=== PATIENT | female | born 1980 | race Caucasian/White ===

== ENCOUNTER → 2016-10-08 | Outpatient (CLI) | payer OTHER | END | disposition home or self-care (01) | LOC: LABWHC1 15:19 | PROVIDERS: ATTEND Obstetrics & Gynecology | DX: N92.6 Irregular menstruation, unspecified (principal) | CPT/HCPCS: 36415; 84702 ==

== ENCOUNTER 2017-05-30 15:55 | Emergency (ER) | payer OTHER ==
[2017-05-30] MEDS ORDERED: IBUPROFEN 600 MG TAB PO STA (16:16)
[2017-05-30] MEDS ORDERED: ACETAMINOPHEN TAB 325 MG TAB PO STA (16:16)
[2017-05-30] MEDS ORDERED: OSELTAMIVIR 75 MG CAP PO STA (16:21)
--- NOTE | 2017-05-30 17:29 | XR ---
EXAMINATION TYPE: XR chest 2V DATE OF EXAM: 05/30/2017 COMPARISON: NONE INDICATION: Cough and congestion TECHNIQUE: Frontal and lateral views of the chest are obtained. FINDINGS: The heart size is normal. The pulmonary vasculature is normal. The lungs are clear. IMPRESSION: 1. No acute pulmonary process.
[2017-05-30 17:34] VITALS: BP 133/82; PULSE 91; RESP 18; TEMP 98.8
--- NOTE | 2017-05-30 17:34 | ED ---
Fever HPI - General Chief Complaint: Fever Stated Complaint: congestion/fever Time Seen by Provider: 05/30/17 16:03 Source: patient Mode of arrival: ambulatory Limitations: no limitations - History of Present Illness Initial Comments: 36-year-old female patient presents today for evaluation of upper respiratory symptoms and fever. Patient states that last Wednesday she started with nasal congestion, sore throat, and cough. She states that she did see her primary care physician on Wednesday was diagnosed with a sinus infection and given azithromycin. Patient states that she completed her last dose of azithromycin yesterday. She states that last evening she started having fevers. She states that she is coughing up green sputum. She states she has general body aches, nausea, and feels generally unwell. She denies any rash. She denies any hemoptysis. She denies any use of tobacco products. was diagnosed with influenza last week. She has a child sick with similar symptoms. Patient denies any recent shortness breath, chest pain, abdominal pain, vomiting, diarrhea, constipation, back pain, numbness, tingling, dizziness, hematuria, dysuria, urinary urgency, urinary frequency, headache, visual changes, or any other complaints. She denies any chance of . - Related Data Home Medications Medication Instructions Recorded Confirmed Citalopram Hydrobromide [CeleXA] 20 mg PO DAILY 08/21/13 12/27/13 Previous Rx's Medication Instructions Recorded Loratadine [Claritin] 10 mg PO DAILY #30 tab 08/21/13 Cyclobenzaprine [Flexeril] 10 mg PO TID #20 tablet 12/27/13 Hydrocodone/Acetaminophen [[place] 1 each PO Q4HR PRN #20 tablet 12/27/13 10-325 Tablet] Ibuprofen [Motrin] 600 mg PO Q8HR PRN #30 tab 12/27/13 Oseltamivir [Tamiflu] 75 mg PO Q12HR #10 cap 05/30/17 Allergies Allergy/AdvReac Type Severity Reaction Status Date / Time No Known Allergies Allergy Verified 05/30/17 16:02 Review of Systems ROS Statement: Those systems with pertinent positive or pertinent negative responses have been documented in the HPI. ROS Other: All systems not noted in ROS Statement are negative. Past Medical History Additional Past Medical History / Comment(s): Depression History of Any Multi-Drug Resistant Organisms: None Reported Past Surgical History: Section Past Psychological History: No Psychological Hx Reported Smoking Status: Current every day smoker Past Alcohol Use History: None Reported Past Drug Use History: None Reported General Exam Limitations: no limitations General appearance: alert, in no apparent distress, other (This is a well- developed, obese Keira patient in no acute distress. Vital signs upon presentation are temperature 103.0F, pulse 106, respirations 20, blood pressure 141/82, pulse ox 99% on room air.) Eye exam: Present: normal appearance, PERRL, EOMI. Absent: scleral icterus, conjunctival injection, periorbital swelling ENT exam: Present: normal exam, mucous membranes moist, TM's normal bilaterally. Absent: normal oropharynx (Pharyngeal erythema, tonsillar hypertrophy.) Neck exam: Present: normal inspection. Absent: tenderness, meningismus, lymphadenopathy Respiratory exam: Present: normal lung sounds bilaterally. Absent: respiratory distress, wheezes, rales, rhonchi, stridor Cardiovascular Exam: Present: normal rhythm, tachycardia, normal heart sounds. Absent: systolic murmur, diastolic murmur, rubs, gallop, clicks GI/Abdominal exam: Present: soft, normal bowel sounds. Absent: distended, tenderness, guarding, rebound, rigid Neurological exam: Present: alert, oriented X3, CN II-XII intact Psychiatric exam: Present: normal affect, normal mood Skin exam: Present: warm, dry, intact, normal color. Absent: rash Course Vital Signs 05/30/17 05/30/17 16:01 17:33 Temperature 103.0 F H 98.8 F Pulse Rate 106 H 91 Respiratory 20 18 Rate Blood Pressure 141/82 133/82 O2 Sat by Pulse 99 96 Oximetry Medical Decision Making - Medical Decision Making 36-year-old female patient percents to to the emergency department today for complaints of upper respiratory symptoms and fever. Physical examination shows tonsillar hypertrophy and erythema. Patient has no cervical lymphadenopathy. Lungs are clear to auscultation with good air movement. Chest x-ray was negative for any acute cardiopulmonary process. Patient has an was diagnosed with influenza last week. Patient symptoms are consistent with an influenza infection. We will go ahead and treat with Tamiflu as her fever did just start yesterday. She is educated regarding fever control. She is instructed to increase her fluid intake. She is instructed to follow-up with her primary care physician for recheck in 1-2 days. She is educated regarding return parameters. She verbalizes understanding and agrees with this plan. Disposition Clinical Impression: Influenza Disposition: HOME SELF-CARE Condition: Good Instructions: Fever in Adults (ED), Influenza (ED) Additional Instructions: Take ibuprofen and acetaminophen every 6 hours to treat her fever. Increase fluids, if you cannot tolerate water drink Gatorade or other sports drinks. Follow-up with her primary care physician for recheck in 1-2 days. Return here immediately for any new, worsening, or concerning symptoms. Prescriptions: Oseltamivir [Tamiflu] 75 mg PO Q12HR #10 cap Referrals: Harika Sullivan MD [Primary Care Provider] - 1-2 days Time of Disposition: 17:34
== END 2017-05-30 17:39 | disposition home or self-care (01) ==
LOC: EC 15:55
DX: J11.1 Influenza due to unidentified influenza virus with other respiratory manifestations (principal); R00.0 Tachycardia, unspecified; F32.9 Major depressive disorder, single episode, unspecified; E66.9 Obesity, unspecified; F17.200 Nicotine dependence, unspecified, uncomplicated; Z79.899 Other long term (current) drug therapy; Z68.42 Body mass index [BMI] 45.0-49.9, adult; Z20.828 Contact with and (suspected) exposure to other viral communicable diseases
CPT/HCPCS: 71046; 99283

== ENCOUNTER 2018-04-30 08:53 | Emergency (ER) | payer OTHER ==
[2018-04-30 09:01] VITALS: BP 142/97; PULSE 83; RESP 18; TEMP 97.9
--- NOTE | 2018-04-30 09:26 | ED ---
General Adult HPI - General Chief complaint: ENT Stated complaint: ENT Time Seen by Provider: 04/30/18 09:07 Source: patient, RN notes reviewed Mode of arrival: ambulatory Limitations: no limitations - History of Present Illness Initial comments: Patient's 37-year-old female presenting to the emergency room today with a chief complaint of right-sided ear pain. She does admit that she had some rhinorrhea and congestion over the past week. Does admit that she's been using [id number] medications that were recommended by her VIRTUAL ASSISTANT. She states that she's been having increased pain to the right ear. Also pain right side of her throat. Patient denies any other complaints or symptoms. She does admit to being approximately 7 Weeks . Denies any abdominal pain, vaginal bleeding or discharge. Patient denies any recent fever, chills, shortness of breath, chest pain, back pain, abdominal pain, nausea or vomiting, headaches or visual changes, or any other complaints. - Related Data Home Medications Medication Instructions Recorded Confirmed Citalopram Hydrobromide [CeleXA] 20 mg PO DAILY 08/21/13 12/27/13 Previous Rx's Medication Instructions Recorded Loratadine [Claritin] 10 mg PO DAILY #30 tab 08/21/13 Cyclobenzaprine [Flexeril] 10 mg PO TID #20 tablet 12/27/13 Hydrocodone/Acetaminophen [[place] 1 each PO Q4HR PRN #20 tablet 12/27/13 10-325 Tablet] Ibuprofen [Motrin] 600 mg PO Q8HR PRN #30 tab 12/27/13 Oseltamivir [Tamiflu] 75 mg PO Q12HR #10 cap 05/30/17 Amoxicillin 500 mg PO Q8H 10 Days day 04/30/18 Allergies Allergy/AdvReac Type Severity Reaction Status Date / Time No Known Allergies Allergy Verified 04/30/18 09:01 Review of Systems ROS Statement: Those systems with pertinent positive or pertinent negative responses have been documented in the HPI. ROS Other: All systems not noted in ROS Statement are negative. Past Medical History Additional Past Medical History / Comment(s): Depression History of Any Multi-Drug Resistant Organisms: None Reported Past Surgical History: Section Past Psychological History: Depression Smoking Status: Current every day smoker Past Alcohol Use History: None Reported Past Drug Use History: None Reported General Exam - General Exam Comments Initial Comments: General: The patient is awake and alert, in no distress, and does not appear acutely ill. Eye: There is normal conjunctiva bilaterally. No signs of icterus. Ears, nose, mouth and throat: There are moist mucous membranes and no oral lesions. Increased redness erythema to the right ear with tenderness over the pinna and trigus on palpation. Neck: The neck is supple, there is no tenderness or JVD. Cardiovascular: There is a regular rate and rhythm. No murmur, rub or gallop is appreciated. Respiratory: Lungs are clear to auscultation, respirations are non-labored, breath sounds are equal. No wheezes, stridor, rales, or rhonchi. Musculoskeletal: Normal ROM, no tenderness. Neurological: A&O x 3. CN II-XII intact, There are no obvious motor or sensory deficits. Coordination appears grossly intact. Speech is normal. Skin: Skin is warm and dry and no rashes or lesions are noted. Psychiatric: Cooperative, appropriate mood & affect, normal judgment. Limitations: no limitations Course Vital Signs 04/30/18 08:58 Temperature 97.9 F Pulse Rate 83 Respiratory 18 Rate Blood Pressure 142/97 O2 Sat by Pulse 98 Oximetry Medical Decision Making - Medical Decision Making Patient will be covered with antibiotics of amoxicillin. She is advised on family following up with over the next 2 days. Disposition Clinical Impression: AOM (acute otitis media) Disposition: HOME SELF-CARE Condition: Good Instructions: Earache (ED) Additional Instructions: Please use medication as discussed. Please follow-up with family doctor in the next 2 days of symptoms have not improved. Please return to emergency room if the symptoms increase or worsen or for any other concerns. Prescriptions: Amoxicillin 500 mg PO Q8H 10 Days day Is patient prescribed a controlled substance at d/c from ED?: No Referrals: Harika Sullivan MD [Primary Care Provider] - 1-2 days Time of Disposition: 09:26
== END 2018-04-30 09:45 | disposition home or self-care (01) ==
LOC: EC 08:53
DX: O99.89 Other specified diseases and conditions complicating pregnancy, childbirth and the puerperium (principal); H66.91 Otitis media, unspecified, right ear; O99.341 Other mental disorders complicating pregnancy, first trimester; F32.9 Major depressive disorder, single episode, unspecified; O99.331 Smoking (tobacco) complicating pregnancy, first trimester; F17.200 Nicotine dependence, unspecified, uncomplicated; Z79.899 Other long term (current) drug therapy; Z3A.01 Less than 8 weeks gestation of pregnancy
CPT/HCPCS: 99282

== ENCOUNTER → 2018-05-04 | Outpatient (CLI) | payer OTHER ==
--- NOTE | 2018-05-04 14:36 | US ---
EXAMINATION TYPE: Transabdominal and Transvaginal DATE OF EXAM: 05/04/18 COMPARISON: NONE CLINICAL HISTORY: Z36 confirm dates. EXAM PERFORMED: Transvaginal (TV) and Transabdominal (TA) EXAM MEASUREMENTS: GESTATIONAL AGE / DATING Physician Established: Not yet established Dates by LMP: (11 weeks/3 days) EDC: 11/20/2018 Dates by First Scan: No previous as this is first scan Dates by Current Scan for: (6 weeks/4 days) EDC: 12/24/2018 MATERNAL ANATOMY Uterus: 13.1 x 7.5 x 5.9cm Right Ovary:2.2 x 2.9 x 2.4cm by TV US Left Ovary: 3.9 x 2.8 x 2.1cm by TV US Post CDS / Adnexa: wnl Presence of free fluid: no Presence of corpus luteal cyst: in let ovary = 2.3 x 1.7 x 1.2cm Presence of subchorionic bleed: no GESTATION / SURVEY CRL: no pole is seen MSD: 2.0cm (6 weeks/4 days) Yolk Sac (normal less than 6mm): not seen IUP: only elongated gestational sac is seen at this US Date of LMP: 02/13/2018 Beta HcG (if available): NA Single, elongated gestational sac is seen measuring 6 weeks/4 days. EDC: 2018 IMPRESSION: Single intrauterine gestational sac. pole is not identified. No cardiac activity is evident. The mean sac diameter of 2.0 cm would be compatible with a 6 weeks 4 day gestation. Typically at this age cardiac activity and pole would be identified.. MTDD
== END | disposition home or self-care (01) ==
LOC: RADUSWWP 12:13
PROVIDERS: ATTEND Obstetrics & Gynecology
DX: Z36.89 Encounter for other specified antenatal screening (principal); Z3A.01 Less than 8 weeks gestation of pregnancy
CPT/HCPCS: 76801; 76817

== ENCOUNTER → 2018-05-12 | Outpatient (CLI) | payer OTHER | END | disposition home or self-care (01) | LOC: LABWHC1 11:08 | PROVIDERS: ATTEND Obstetrics & Gynecology | DX: O02.1 Missed abortion (principal); R53.83 Other fatigue | CPT/HCPCS: 36415; 84702 ==

== ENCOUNTER 2018-05-15 13:16 | Observation (INO) | payer OTHER ==
[2018-05-15] MEDS ORDERED: SODIUM CHLORIDE 0.9% 1,000 ML IV ONE ×3 (14:02→17:01)
[2018-05-15] MEDS ORDERED: MORPHINE SULFATE 2 MG/ML SYRINGE IVP STA (14:05)
[2018-05-15] MEDS ORDERED: ONDANSETRON 4 MG/2 ML VIAL IVP STA (14:05)
--- NOTE | 2018-05-15 14:05 | ED ---
General Adult HPI - General Chief complaint: Vaginal Bleeding Stated complaint: female Time Seen by Provider: 05/15/18 13:53 Source: patient, family, RN notes reviewed Mode of arrival: EMS Limitations: no limitations - History of Present Illness Initial comments: Patient is a pleasant 37-year-old female presenting to the emergency department for vaginal bleeding. Last menstrual period was February 13. Patient does see Dr. Aparicio. Patient is . 1 history of miscarriage. Patient states she has had spotting and was here on . Patient was told that her hormone levels were low and ultrasound did not show anything. Patient was told she would miscarry. Patient started having heavy bleeding around noon today. Patient states she is having large clots. Patient states she is having cramping similar to delivery and feels like she is about to pass out. - Related Data Home Medications Medication Instructions Recorded Confirmed Pnv No.95/Ferrous Fum/Folic AC 1 tab PO DAILY 05/15/18 05/15/18 [ Multivitamin Tablet] Previous Rx's Medication Instructions Recorded Loratadine [Claritin] 10 mg PO DAILY #30 tab 08/21/13 Allergies Allergy/AdvReac Type Severity Reaction Status Date / Time No Known Allergies Allergy Verified 05/15/18 13:45 Review of Systems ROS Statement: Those systems with pertinent positive or pertinent negative responses have been documented in the HPI. ROS Other: All systems not noted in ROS Statement are negative. Constitutional: Denies: fever Eyes: Denies: eye pain ENT: Denies: ear pain Respiratory: Denies: cough Cardiovascular: Denies: chest pain Endocrine: Denies: fatigue Gastrointestinal: Reports: as per HPI Genitourinary: Reports: as per HPI Musculoskeletal: Denies: back pain Skin: Denies: rash Neurological: Denies: headache Past Medical History Additional Past Medical History / Comment(s): Depression History of Any Multi-Drug Resistant Organisms: None Reported Past Surgical History: Section Past Psychological History: Depression Smoking Status: Current every day smoker Past Alcohol Use History: Occasional Past Drug Use History: None Reported General Exam Limitations: no limitations General appearance: alert, anxious Head exam: Present: atraumatic Eye exam: Present: normal appearance, PERRL ENT exam: Present: normal oropharynx Neck exam: Present: normal inspection Respiratory exam: Present: normal lung sounds bilaterally Cardiovascular Exam: Present: regular rate, normal rhythm Expanded Peripheral pulses: 2+: Radial (R), Radial (L), Dorsalis Pedis (R), Dorsalis Pedis (L) GI/Abdominal exam: Present: soft, tenderness (Mild to moderate tenderness lower abdomen). Absent: distended, guarding, rebound, rigid External exam: Present: normal external exam (RN Nic is present.) Speculum exam: Present: vaginal bleeding (Mostly clots.) By manual exam: Present: other (Mild diffuse tenderness) Extremities exam: Present: normal inspection Neurological exam: Present: alert Psychiatric exam: Present: anxious Skin exam: Present: diaphoretic Course Vital Signs 05/15/18 05/15/18 05/15/18 13:30 14:15 14:30 Temperature 97.8 F Pulse Rate 87 80 70 Respiratory 18 18 16 Rate Blood Pressure 135/86 142/94 114/69 O2 Sat by Pulse 95 97 Oximetry 05/15/18 05/15/18 05/15/18 14:45 15:00 15:15 Temperature Pulse Rate 71 76 67 Respiratory 18 18 18 Rate Blood Pressure 111/91 110/69 122/78 O2 Sat by Pulse 99 100 99 Oximetry 05/15/18 15:30 Temperature Pulse Rate 65 Respiratory 18 Rate Blood Pressure 108/67 O2 Sat by Pulse 100 Oximetry - Reevaluation(s) Reevaluation #1: 05/15/18 15:[address] Jeter who will come to evaluate patient. Medical Decision Making - Medical Decision Making Patient seen by Dr. Jeter in the emergency department who will take patient for D&C. - Lab Data Result diagrams: 05/15/18 14:00 05/15/18 14:00 Lab Results 05/15/18 05/15/18 05/15/18 Range/Units 14:00 14:00 14:00 WBC 16.9 H (3.8-10.6) k/uL RBC 4.21 (3.80-5.40) m/uL Hgb 13.0 (11.4-16.0) gm/dL Hct 39.8 (34.0-46.0) % MCV 94.7 (80.0-100.0) fL MCH 30.8 (25.0-35.0) pg MCHC 32.6 (31.0-37.0) g/dL RDW 12.2 (11.5-15.5) % Plt Count 308 (150-450) k/uL Neutrophils % 70 % Lymphocytes % 24 % Monocytes % 4 % Eosinophils % 1 % Basophils % 0 % Neutrophils # 11.8 H (1.3-7.7) k/uL Lymphocytes # 4.0 (1.0-4.8) k/uL Monocytes # 0.6 (0-1.0) k/uL Eosinophils # 0.1 (0-0.7) k/uL Basophils # 0.1 (0-0.2) k/uL PT 9.9 (9.0-12.0) sec INR 0.9 (<1.2) APTT 20.9 L (22.0-30.0) sec Sodium 138 (137-145) mmol/L Potassium 4.0 (3.5-5.1) mmol/L Chloride 107 (98-107) mmol/L Carbon Dioxide 21 L (22-30) mmol/L Anion Gap 10 mmol/L BUN 10 (7-17) mg/dL Creatinine 0.64 (0.52-1.04) mg/dL Est GFR (CKD-EPI)AfAm >90 (>60 ml/min/1.73 sqM) Est GFR (CKD-EPI)NonAf >90 (>60 ml/min/1.73 sqM) Glucose 121 H (74-99) mg/dL Calcium 9.6 (8.4-10.2) mg/dL Total Bilirubin 0.3 (0.2-1.3) mg/dL AST 16 (14-36) U/L ALT 24 (9-52) U/L Alkaline Phosphatase 50 (38-126) U/L Total Protein 6.5 (6.3-8.2) g/dL Albumin 3.8 (3.5-5.0) g/dL HCG, Quant 907.1 mIU/mL Blood Type Blood Type Recheck Antibody Screen Spec Expiration Date 05/15/18 Range/Units 14:00 WBC (3.8-10.6) k/uL RBC (3.80-5.40) m/uL Hgb (11.4-16.0) gm/dL Hct (34.0-46.0) % MCV (80.0-100.0) fL MCH (25.0-35.0) pg MCHC (31.0-37.0) g/dL RDW (11.5-15.5) % Plt Count (150-450) k/uL Neutrophils % % Lymphocytes % % Monocytes % % Eosinophils % % Basophils % % Neutrophils # (1.3-7.7) k/uL Lymphocytes # (1.0-4.8) k/uL Monocytes # (0-1.0) k/uL Eosinophils # (0-0.7) k/uL Basophils # (0-0.2) k/uL PT (9.0-12.0) sec INR (<1.2) APTT (22.0-30.0) sec Sodium (137-145) mmol/L Potassium (3.5-5.1) mmol/L Chloride (98-107) mmol/L Carbon Dioxide (22-30) mmol/L Anion Gap mmol/L BUN (7-17) mg/dL Creatinine (0.52-1.04) mg/dL Est GFR (CKD-EPI)AfAm (>60 ml/min/1.73 sqM) Est GFR (CKD-EPI)NonAf (>60 ml/min/1.73 sqM) Glucose (74-99) mg/dL Calcium (8.4-10.2) mg/dL Total Bilirubin (0.2-1.3) mg/dL AST (14-36) U/L ALT (9-52) U/L Alkaline Phosphatase (38-126) U/L Total Protein (6.3-8.2) g/dL Albumin (3.5-5.0) g/dL HCG, Quant mIU/mL Blood Type O Positive Blood Type Recheck No Antibody Screen NEGATIVE Spec Expiration Date 05/18/2018 - 2299 Disposition Clinical Impression: Incomplete miscarriage Disposition: ADMITTED IP TO THIS HOSP Is patient prescribed a controlled substance at d/c from ED?: No Referrals: Harika Sullivan MD [Primary Care Provider] - 1-2 days Decision Time: 16:10
[2018-05-15 14:19] LABS: Basophils # (A) 0.1 k/uL (0-0.2); Basophils % (A) 0 %; Eosinophils # (A) 0.1 k/uL (0-0.7); Eosinophils % (A) 1 %; HCT 39.8 % (34.0-46.0); Lymphocytes % (A) 24 %; MCH 30.8 pg (25.0-35.0); MCHC 32.6 g/dL (31.0-37.0); MCV 94.7 fL (80.0-100.0); Mean Platelet Volume 7.3; Monocytes # (A) 0.6 k/uL (0-1.0); Monocytes % (A) 4 %; Neutrophils # (A) 11.8 k/uL (1.3-7.7); Neutrophils % (A) 70 %; Platelet Count 308 k/uL (150-450); RBC 4.21 m/uL (3.80-5.40); RDW 12.2 % (11.5-15.5); WBC 16.9 k/uL (3.8-10.6)
[2018-05-15] MEDS ORDERED: MORPHINE SULFATE 4 MG/ML SYRINGE IVP STA (14:28)
[2018-05-15 14:30] LABS: ALT 24 U/L (9-52); AST 16 U/L (14-36); Albumin 3.8 g/dL (3.5-5.0); Alkaline Phosphatase 50 U/L (38-126); Anion Gap 10 mmol/L; Blood Urea Nitrogen 10 mg/dL (7-17); Calcium 9.6 mg/dL (8.4-10.2); Carbon Dioxide 21 mmol/L (22-30); Chloride 107 mmol/L (98-107); Glucose 121 mg/dL (74-99); Sodium 138 mmol/L (137-145); Total Bilirubin 0.3 mg/dL (0.2-1.3); Total Protein 6.5 g/dL (6.3-8.2)
[2018-05-15 14:41] LABS: INR 0.9 (<1.2); Prothrombin Time 9.9 sec (9.0-12.0)
[2018-05-15 14:46] LABS: HCG,Quantitative Serum 907.1 mIU/mL
[2018-05-15 14:52] LABS: Partial Thromboplastin Time 20.9 sec (22.0-30.0)
[2018-05-15] MEDS ORDERED: MORPHINE SULFATE 4 MG/ML SYRINGE IV STA (15:05)
--- NOTE | 2018-05-15 15:42 | US ---
EXAMINATION TYPE: Transabdominal DATE OF EXAM: 07/20/17 COMPARISON: US 05/04/2018 CLINICAL HISTORY: pain. excessive bleeding EXAM PERFORMED: Transabdominal (TA) EXAM MEASUREMENTS: GESTATIONAL AGE / DATING Physician Established: Not yet established Dates by LMP: did not correlate on prior exam Dates by First Scan: only gestational sac seen Dates by Current Scan for: Gestational sac seen in [place] that measures 5 weeks 4 days. MATERNAL ANATOMY Uterus: 12.4 x 6.7 x 5.9 cm Right Ovary: not identified Left Ovary: not identified Post CDS / Adnexa: wnl Presence of free fluid: none GESTATION / SURVEY MSD: 1.4 cm (5 weeks/4 days) Yolk Sac (normal less than 6mm): not seen Patient states declining Beta hcg levels. Patient is hemorrhaging today. gestational sac seen in [place] that measures less than on prior exam dated 05/04/2018. Probable miscarriage in progress. Imaging is limited. IMPRESSION: Findings suggest spontaneous , incomplete miscarriage, follow-up as indicated. Somewhat limit ed exam.
[2018-05-15] MEDS ORDERED: SODIUM CHLORIDE 0.9% 1,000 ML IV SCH (16:15)
--- NOTE | 2018-05-15 16:55 | P.HPOB ---
History of Present Illness H&P Date: 05/15/18 Chief Complaint: Incomplete AB Manjinder is a 37-year-old with 1 prior miscarriage at 17 weeks a few years ago. She relates that she is supposed to be about 14 weeks but 10 days ago she had an ultrasound showing that she was only 6 weeks with no cardiac activity. Beta hCGs have been followed and have been dropping but this afternoon she began to have heavy vaginal bleeding with passage of baseball size clots. Since that time she felt lightheaded and diaphoretic. She is symptomatic and while her blood pressures stable and she is non-tachycardic she is not tolerating the pressure process well at all and with continued relatively heavy vaginal bleeding a discussion was held between she and her and a decision to move forward with a suction D&C has been made due to hemorrhage and incomplete AB. I did do a pelvic exam which showed blood clots and a fractional open cervix but no products at the cervical os. I do suspect that many many of her symptoms are vagal in nature as the symptoms do sound more vagal. It is noted that she did have morphine as well short time ago for the pain so some of that may also be opioid related. Risks/benefits/returns to the suction D&C were discussed with patient in detail and did include but were not limited to bleeding and infection as well as perforation with resultant bowel injury or even . It is highly unlikely but it is still possible as this is a surgical procedure. She is aware of same. On physical exam vital signs are stable and she is afebrile. Heart regular, lungs clear, extremities without pain. Abdomen is soft and morbidly obese. Pelvic exam as above. Assessment incomplete AB Plan suction D&C. Past Medical History Additional Past Medical History / Comment(s): Depression History of Any Multi-Drug Resistant Organisms: None Reported Past Surgical History: Section Past Psychological History: Depression Smoking Status: Current every day smoker Past Alcohol Use History: Occasional Past Drug Use History: None Reported Medications and Allergies Home Medications Medication Instructions Recorded Confirmed Type Loratadine [Claritin] 10 mg PO DAILY #30 tab 08/21/13 05/15/18 Rx Pnv No.95/Ferrous Fum/Folic AC 1 tab PO DAILY 05/15/18 05/15/18 History [ Multivitamin Tablet] Allergies Allergy/AdvReac Type Severity Reaction Status Date / Time No Known Allergies Allergy Verified 05/15/18 13:45 Exam Osteopathic Statement: *. No significant issues noted on an osteopathic structural exam other than those noted in the History and Physical/Consult. Vital Signs Temp Pulse Resp BP Pulse Ox 05/15/18 16:30 70 18 109/71 100 05/15/18 16:15 72 18 105/62 100 05/15/18 16:00 63 18 102/59 100 05/15/18 15:45 68 18 115/71 100 05/15/18 15:30 65 18 108/67 100 05/15/18 15:15 67 18 122/78 99 05/15/18 15:00 76 18 110/69 100 05/15/18 14:45 71 18 111/91 99 05/15/18 14:30 70 16 114/69 97 05/15/18 14:15 80 18 142/94 05/15/18 13:30 97.8 F 87 18 135/86 95 Intake and Output 05/15/18 05/15/18 05/15/18 06:59 14:59 22:59 Other: Weight 117.934 kg - OBG Physical Exam Vulva: both: normal Vagina: normal moisture, no discharge Cervix: no lesion, no discharge Uterus: normal size, normal contour Adnexa: both: normal Anus/Rectum: normal perianal skin, no rectal mass, no hemorrhoids, heme negative Results Result Diagrams: 05/15/18 14:00 05/15/18 14:00 Abnormal Lab Results - Last 24 Hours (Table) 05/15/18 05/15/18 05/15/18 Range/Units 14:00 14:00 14:00 WBC 16.9 H (3.8-10.6) k/uL Neutrophils # 11.8 H (1.3-7.7) k/uL APTT 20.9 L (22.0-30.0) sec Carbon Dioxide 21 L (22-30) mmol/L Glucose 121 H (74-99) mg/dL
[2018-05-15] MEDS ORDERED: MIDAZOLAM 2 MG/2 ML VIAL ONE (17:13)
[2018-05-15] MEDS ORDERED: fentaNYL (PF) 50 MCG/ML 2 ML AMP ONE (17:13)
[2018-05-15] MEDS ORDERED: LIDOCAINE 1% INJ 10MG/ML (20 ML MDV) ONE (17:13)
[2018-05-15] MEDS ORDERED: PROPOFOL 10 MG/ML 20 ML VIAL IV ONE (17:13)
[2018-05-15] MEDS ORDERED: SUCCINYLCHOLINE CHLORIDE 100 MG/5 ML SYR IV ONE (17:13)
--- NOTE | 2018-05-15 17:37 | P.OP ---
Date of Procedure: 05/15/18 Preoperative Diagnosis: Incomplete AB Postoperative Diagnosis: Same Procedure(s) Performed: Suction D&C Anesthesia: SARAHA Surgeon: Iker Wiggins Pathology: other (products of conception) Condition: stable Disposition: same day Operative Findings: Enlarged uterus with products of conception Description of Procedure: Patient was taken to the operating suite where a general anesthetic was found be adequate. She was prepped and draped in normal sterile fashion and sounded to approximately 11 cm. Cervix was then dilated and an 8 curved tip suction tip cath was inserted into the uterus and suction was applied. Multiple clockwise passes were used to extrude the tissue and lining of the uterus. This was done at least 4 times and then suction tip was removed and gentle sharp curettings of endometrium were done to verify all tissue was out. 2 or 3 more passes with the suction tip curette were then done to verify removal of all products of conception. At the conclusion of procedure there was no further bleeding noted and patient was taken to the recovery room in stable and satisfactory condition. All instruments were then removed. Sponge, lap, needle counts were all correct 2. The goal will be to discharge her to home when stable following recovery. Prescription for Motrin was sent to the pharmacy and she will follow up with Dr. Aparicio in approximately 1 week. Plan - Discharge Summary New Discharge Prescriptions: New Ibuprofen [Motrin] 600 mg PO Q6HR PRN #30 tab PRN Reason: Pain No Action Loratadine [Claritin] 10 mg PO DAILY #30 tab Pnv No.95/Ferrous Fum/Folic AC [ Multivitamin Tablet] 1 tab PO DAILY Discharge Medication List Loratadine [Claritin] 10 mg PO DAILY #30 tab 08/21/13 [Rx] Ibuprofen [Motrin] 600 mg PO Q6HR PRN #30 tab 05/15/18 [Rx] Pnv No.95/Ferrous Fum/Folic AC [ Multivitamin Tablet] 1 tab PO DAILY [History] Follow up Appointment(s)/Referral(s): Harika Sullivan MD [Primary Care Provider] - 1-2 days Anjali Aparicio DO [Doctor of Osteopathic Medicine] - 1 Week Activity/Diet/Wound Care/Special Instructions: No heavy lifting today, limit stairs and driving. Pelvic rest. If any high temperatures, heavy bleeding, or severe pain call the office or report to the emergency room Discharge Disposition: HOME SELF-CARE
[2018-05-15] MEDS ORDERED: ONDANSETRON 4 MG/2 ML VIAL IVP ONE (17:59)
[2018-05-15 20:11] VITALS: BMI 43.2
[2018-05-15 20:22] VITALS: RESP 18
[2018-05-15 21:38] VITALS: BP 130/72; PULSE 83; TEMP 97.6
== END 2018-05-15 21:39 | disposition home or self-care (01) ==
LOC: EC 13:16 → 6PED 16:11
PROVIDERS: ADMIT Obstetrics & Gynecology; ATTEND Obstetrics & Gynecology
DX: O03.4 Incomplete spontaneous abortion without complication (principal); F32.9 Major depressive disorder, single episode, unspecified; F17.200 Nicotine dependence, unspecified, uncomplicated; Z79.899 Other long term (current) drug therapy
CPT/HCPCS: 59812; 96361; 96374; 96375; 99285; 36415; 86900; 86901; 88305; 80053; 85025; 85610; 85730; 86850; 84702; 76801; G0378; J2250; J2270; J2405; J2001; J3010; J0330; J2704

== ENCOUNTER → 2020-02-27 | Outpatient (CLI) | payer OTHER ==
--- NOTE | 2020-02-27 12:11 | XR ---
EXAMINATION TYPE: XR ankle complete LT DATE OF EXAM: 02/27/2020 COMPARISON: NONE HISTORY: Pain FINDINGS: Three views of the ankle demonstrate the ankle mortise to be intact and symmetric. The joint spaces are preserved. The osseous structures are intact. Plantar calcaneal spur noted. IMPRESSION: 1. No definite acute fracture or dislocation, if symptoms persist follow-up study in 7 to 10 days wou ld be suggested.
--- NOTE | 2020-02-27 12:11 | XR ---
EXAMINATION TYPE: XR foot complete LT DATE OF EXAM: 02/27/2020 COMPARISON: NONE HISTORY: Pain TECHNIQUE: Three views are submitted. FINDINGS: The osseous structures are intact. There is no acute fracture or dislocation. Joint spaces are p reserved. IMPRESSION: 1. No acute fracture or dislocation. If symptoms persist, follow-up exam in 7 to 10 days could be ob tained.
== END | disposition home or self-care (01) ==
LOC: RADXRMAIN 11:33
PROVIDERS: ATTEND Emergency Medicine
DX: S93.402A Sprain of unspecified ligament of left ankle, initial encounter (principal); S93.602A Unspecified sprain of left foot, initial encounter; M25.572 Pain in left ankle and joints of left foot; M79.672 Pain in left foot

== ENCOUNTER → 2020-04-03 | Outpatient (CLI) | payer OTHER ==
--- NOTE | 2020-04-03 22:43 | US ---
EXAMINATION TYPE: Transabdominal DATE OF EXAM: 04/03/2020 4:12 PM COMPARISON: NONE CLINICAL HISTORY: Z36 confirm dates. Confirm dates. Positive beta-hCG test. EXAM PERFORMED: Transvaginal (TV) and Transabdominal (TA) EXAM MEASUREMENTS: GESTATIONAL AGE / DATING Physician Established: Not yet established Dates by LMP: LMP unknown Dates by First Scan: No previous this is first scan Dates by Current Scan for: (7 weeks/6 days) EDC: 11/14/2020 MATERNAL ANATOMY Uterus: 13.3 x 6.5 x 7.7 cm Right Ovary: 3.3 x 2.6 x 3.0 cm Left Ovary: Obscured by bowel gas. Post CDS / Adnexa: wnl Presence of free fluid: no Presence of corpus luteal cyst: no Presence of subchorionic bleed: no GESTATION / SURVEY CRL: 1.50 cm (7 weeks/6 days) Yolk Sac (normal less than 6mm): 5mm Heart Rate: 153 bpm Rhythm: Normal IUP: Viable IUP Beta HcG (if available): Not available at this time Single live intrauterine gestation is confirmed as gestational sac, yolk sac, and pole are iden tified on transvaginal scanning. No free fluid in pelvic cul-de-sac. Right ovary is seen. Left ovary is not clearly identified. No suspicious extra ovarian adnexal lesion noted. IMPRESSION: Single live intrauterine gestation is confirmed, mean crown-rump length 1.5 cm correspond ing to 7 weeks 6 day old fetus.
== END | disposition home or self-care (01) ==
LOC: RADUSWWP 15:38
PROVIDERS: ATTEND Obstetrics & Gynecology
DX: Z36.9 Encounter for antenatal screening, unspecified (principal); Z3A.01 Less than 8 weeks gestation of pregnancy
CPT/HCPCS: 76801; 76817

== ENCOUNTER → 2020-05-22 | Outpatient (CLI) | payer OTHER ==
[2020-05-22 12:59] LABS: ALT 15 U/L (4-34); AST 16 U/L (14-36)
[2020-05-22 21:56] LABS: Cardiolipin Ab IgG Interp NEGATIVE (NEGATIVE); Cardiolipin Ab IgM Interp NEGATIVE (NEGATIVE); Cardiolipin IgM Antibody 11.7 U/mL
[2020-05-23 15:20] LABS: APTT 39 Sec(s) (<43); Dilute Russell Viper Venom 38 Sec(s) (<44)
== END | disposition home or self-care (01) ==
LOC: LABWHC1 12:00
PROVIDERS: ATTEND Obstetrics & Gynecology
DX: O09.522 Supervision of elderly multigravida, second trimester (principal); Z31.430 Encounter of female for testing for genetic disease carrier status for procreative management
CPT/HCPCS: 36415; 82570; 84450; 84460; 85613; 85730; 86147

== ENCOUNTER 2020-09-10 11:03 | Outpatient (CLI) | payer OTHER ==
[2020-09-10 12:38] VITALS: BP 148/76; PULSE 100; RESP 20
--- NOTE | 2020-09-19 11:28 | P.MSEPDOC ---
Presenting Problems - Arrival Data Date of Arrival on Unit: 09/10/20 Time of Arrival on Unit: 11:03 Mode of Transport: Wheelchair - Complaint OB-Reason for Admission/Chief Complaint: Observation/Evaluation Comment: pt presents to triage with compliants of nausea, vomiting and diarrehea since 1230 last night after constipation the day before, she states her 15 year old son had the same thing the day before Medical History - Information : 7 Para: 4 - Gestational Age Gestational Age by PRECIOUS (wks/days): 32 Weeks and 0 Days - History Complications: GDM Review of Systems - Review of Systems Constitutional: No problems Breast: No problems ENT: No problems Cardiovascular: No problems Respiratory: No problems Gastrointestinal: Constipation, Diarrhea Genitourinary: No problems Musculoskeletal: No problems Neurological: No problems Skin: No problems Vital Signs - Pulse Right Sitting Brachial Pulse Rate: 100 Pulse Assessment Method: Automatic Cuff - Respirations Respiratory Rate: 20 - Blood Pressure Right Arm Blood Pressure: 148/76 Blood Pressure Mean: 100 Blood Pressure Source: Automatic Cuff Medical Screen Scoring (Pre) - Cervical Exam Dilation: Exam Deferred Effacement: Exam Deferred - Uterine Contractions Frequency: N/A Duration: N/A Intensity: N/A - Maternal Vital Signs Maternal Temperature: N/A Maternal Blood Pressure: Systolic >139 = 2 Signs of Preeclampsia: N/A Maternal Respirations: N/A - Maternal Trauma Maternal Trauma: N/A - Assessment - Baby A Baseline FHR: 145 Heart Rate - NICHD Category: Category I (Normal) = 0 NST: Reactive Position: N/A Station: N/A - Total Score - Baby A Total Score - Baby A: 2 - Total Score - Baby B Total Score - Baby B: 2 - Total Score - Baby C Total Score - Baby C: 2 - Level of Risk - Baby A Level of Risk - Baby A: Low (0-5) - Level of Risk - Baby B Level of Risk - Baby B: Low (0-5) - Level of Risk - Baby C Level of Risk - Baby C: Low (0-5) Physician Notification (Pre) - Physician Notified Physician Notified Date: 09/10/20 Physician Notified Time: 12:10 New Order Received: Yes Disposition - Disposition OB Disposition: Physician follow up in office, Discharge to home, Written follow up instructions reviewed Discharge Date: 09/10/20 Discharge Time: 12:30 I agree with the RN Medical Screening Exam: Yes Case reviewed; plan agreed upon as documented in EMR&OBIX.: Yes Diagnosis: VOMITING OF , UNSPECIFIED
== END 2020-09-10 12:30 | disposition home or self-care (01) ==
LOC: FBPOP 11:03
PROVIDERS: ATTEND Obstetrics & Gynecology
DX: O21.2 Late vomiting of pregnancy (principal); O99.333 Smoking (tobacco) complicating pregnancy, third trimester; F17.200 Nicotine dependence, unspecified, uncomplicated; Z3A.32 32 weeks gestation of pregnancy
CPT/HCPCS: 59025; 87635; G0463; 99213

== ENCOUNTER 2020-10-11 11:54 | Inpatient (IN) | payer OTHER ==
[2020-10-11 12:49] LABS: Appearance,Urine Cloudy (Clear); Bacteria,Urine Few /hpf; Bilirubin,Urine Negative (Negative); Blood,Urine Negative (Negative); Color,Urine Yellow; Glucose,Urine (UA) Negative (Negative); Ketones,Urine Trace (Negative); Leukocyte Esterase,Urine Moderate (Negative); Mucus,Urine Moderate /hpf; Nitrite,Urine Negative (Negative); PH, Urine 6.5 (5.0-8.0); Protein,Urine 1+ (Negative); RBC,Urine 1 /hpf (0-5); Specific Gravity,Urine 1.019 (1.001-1.035); Squamous Epithelial Cell,Urine 10 /hpf (0-4); Urobilinogen,Urine <2.0 mg/dL (<2.0); WBC,Urine 9 /hpf (0-5)
[2020-10-11 12:51] LABS: Creatinine,Urine Random 160.8 mg/dL; Protein/Creatinine Ratio,Urine 0.162
[2020-10-11 13:06] LABS: ALT 9 U/L (4-34); AST 16 U/L (14-36); African American GFR (CKD) >90 (>60 ml/min/1.73 sqM); Blood Urea Nitrogen 6 mg/dL (7-17); LDH 353 U/L (313-618); Non-African American GFR(CKD) >90 (>60 ml/min/1.73 sqM); Uric Acid 4.7 mg/dL (3.7-7.4)
[2020-10-11 13:14] LABS: Basophils % (A) 0 %; Eosinophils % (A) 0 %; HCT 36.4 % (34.0-46.0); HGB 12.3 gm/dL (11.4-16.0); Lymphocytes # (A) 1.5 k/uL (1.0-4.8); Lymphocytes % (A) 17 %; MCH 31.7 pg (25.0-35.0); MCHC 33.8 g/dL (31.0-37.0); MCV 93.6 fL (80.0-100.0); Mean Platelet Volume 10.6; Monocytes # (A) 0.3 k/uL (0-1.0); Monocytes % (A) 4 %; Neutrophils # (A) 6.9 k/uL (1.3-7.7); Neutrophils % (A) 78 %; Platelet Count 166 k/uL (150-450); RBC 3.89 m/uL (3.80-5.40); RDW 13.9 % (11.5-15.5); WBC 8.8 k/uL (3.8-10.6)
[2020-10-11 13:30] LABS: Glucose,Whole Blood 86 mg/dL (75-99)
[2020-10-11] MEDS ORDERED: LACTATED RINGERS 1,000 ML IV ONE (13:33)
[2020-10-11] MEDS ORDERED: CITRIC ACID-SODIUM CITRATE 15 ML CUP PO ONE (13:33)
[2020-10-11] MEDS ORDERED: ceFAZolin 3 GM in SODIUM CHLORIDE 0.9% 100 ML IVPB ONE (13:33)
[2020-10-11 14:53] LABS: INR 0.9 (<1.2); Partial Thromboplastin Time 22.5 sec (22.0-30.0); Prothrombin Time 9.4 sec (9.0-12.0)
[2020-10-11 16:12] LABS: Amphetamine Screen,Urine Not Detected (NotDetected); Barbiturate Screen,Urine Not Detected (NotDetected); Benzodiazepines Screen,Urine Not Detected (NotDetected); Cocaine Screen,Urine Not Detected (NotDetected); Methadone Screen, Urine Not Detected (NotDetected); Opiate Screen,Urine Not Detected (NotDetected); Oxycodone Screen, Urine Not Detected (NotDetected); Phencyclidine Screen,Urine Not Detected (NotDetected); Tricyclic Antidepressant,Urine Not Detected (NotDetected); Urn Cannabinoid Scrn Not Detected (NotDetected)
[2020-10-11] MEDS ORDERED: MORPHINE SULFATE (PF) 0.3 MG/0.3 ML SYR ONE (16:41)
[2020-10-11] MEDS ORDERED: ONDANSETRON 4 MG/2 ML VIAL ONE (16:41)
[2020-10-11] MEDS ORDERED: KETOROLAC 15 MG/ML 1 ML VIAL ONE (16:41)
[2020-10-11] MEDS ORDERED: NALBUPHINE 10 MG/ML (1 ML AMP) ONE (16:41)
[2020-10-11] MEDS ORDERED: OXYTOCIN 30 UNITS/500 ML NS BAG IV ONE ×2 (16:41)
[2020-10-11] MEDS ORDERED: OXYTOCIN 30 UNITS/500 ML NS 30 UNIT in SALINE 1 500ML.BAG IV SCH (17:45)
[2020-10-11] MEDS ORDERED: METOCLOPRAMIDE 5 MG/ML 2 ML VIAL IVP PRN (17:45)
[2020-10-11] MEDS ORDERED: SIMETHICONE 80 MG CHEWABLE PO PRN (17:45)
[2020-10-11] MEDS ORDERED: LANOLIN CREAM 5 GM TUBE TOPICAL PRN (17:45)
[2020-10-11] MEDS ORDERED: ONDANSETRON 4 MG/2 ML VIAL IVP PRN (17:45)
[2020-10-11] MEDS ORDERED: NALOXONE 0.4 MG/ML 1 ML VIAL IV PRN (17:45)
[2020-10-11] MEDS ORDERED: diphenhydrAMINE 50 MG/ML 1 ML VIAL IVP PRN (17:45)
[2020-10-11] MEDS ORDERED: diphenhydrAMINE 25 MG CAP PO PRN (17:45)
[2020-10-11] MEDS ORDERED: ZOLPIDEM 5 MG TAB PO PRN (17:45)
[2020-10-11] MEDS ORDERED: MAGNESIUM SULFATE GM 6 GM in SODIUM CHLORIDE 0.9% 100 ML IVPB ONE (17:51)
[2020-10-11] MEDS ORDERED: CALCIUM GLUCONATE 1 GM/10 ML VIAL IV PRN (17:51)
--- NOTE | 2020-10-11 18:15 | P.HPOB ---
History of Present Illness H&P Date: 10/11/20 Chief Complaint: Hypertension, uncontrolled diabetes This patient is a 40-year-old 7 para 4 female estimated date of confinement 11/05/2020 estimated gestational age 36-3/7 weeks who presented to the office today for a visit. Patient's care is per Dr. Aparicio and per maternal medicine. has been complicated by gestational diabetes that for the most part has been uncontrolled. Patient also is advanced for maternal age, morbidly obese, previous section 4, and substance abuse(marijuana). Patient was seen by Dr. Mendes and maternal- medicine on Wednesday and at that time did have an elevated blood pressure 170 over 90s. She was sent to labor and delivery at [facility] and monitored for approximately 4 hours. Preeclampsia labs were normal and blood pressures did come down so it was not a reproducible elevated blood pressure. Patient was seen in the office today and was noted to have an elevated blood pressure and this was reproducible in labor and delivery. Repeat labs were normal. I did contact Dr. Mendes and discussed the case and felt it was best to proceed with delivery at this time. Patient has been scheduled for repeat section also requesting permanent sterilization at this time. Review of Systems Genitourinary: Reports Menstruation: Reports amenorrhea Past Medical History Past Medical History: No Reported History Additional Past Medical History / Comment(s): Depression Gest diabetes History of Any Multi-Drug Resistant Organisms: None Reported Past Surgical History: Section Additional Past Surgical History / Comment(s): x4 and x2 D&C Past Anesthesia/Blood Transfusion Reactions: No Reported Reaction Past Psychological History: Depression Additional Psychological History / Comment(s): Says Depression seems to be from post and stress. Smoking Status: Former smoker Past Alcohol Use History: Occasional Past Drug Use History: Marijuana Additional Drug Use History / Comment(s): occasional THC use - Past Family History Mother Family Medical History: Cancer, Diabetes Mellitus Medications and Allergies Home Medications Medication Instructions Recorded Confirmed Type RX: Loratadine [Claritin] 10 mg PO DAILY #30 tab 08/21/13 10/11/20 Rx Pnv No.95/Ferrous Fum/Folic AC 1 tab PO DAILY 05/15/18 10/11/20 History [ Multivitamin Tablet] INSULIN LISPRO (humaLOG) [humaLOG] 20 units SQ DIRECTED 10/11/20 10/11/20 History Insulin Glargine [Lantus] 70 unit SQ HS 10/11/20 10/11/20 History Allergies Allergy/AdvReac Type Severity Reaction Status Date / Time No Known Allergies Allergy Verified 10/11/20 12:11 Exam Vital Signs Temp Pulse Resp BP Pulse Ox 10/11/20 17:52 72 18 141/75 98 10/11/20 17:45 98 10/11/20 17:37 97.5 F L 73 18 136/73 98 10/11/20 14:00 96.8 F L 95 18 171/81 Intake and Output 10/11/20 10/11/20 10/11/20 06:59 14:59 22:59 Intake Total 700 Output Total 300 Balance 400 Intake: IV 700 Output: Urine 300 Other: Voiding Method Incontinent # Voids 2 Weight 146.057 kg - OBG Physical Exam Abdomen: bowel sounds normal (Obese), no diffuse tenderness, no bruit present, no guarding noted, no hepatomegaly, no splenomegaly, no mass Vulva: both: normal Vagina: normal moisture, no discharge Cervix: no lesion, no discharge Uterus: enlarged Results labs show she is O positive, rubella immune, RPR nonreactive, hepatitis B negative, HIV is nonreactive, Glucola was 219. Result Diagrams: 10/11/20 12:35 10/11/20 12:35 Abnormal Lab Results - Last 24 Hours (Table) 10/11/20 10/11/20 Range/Units 12:00 12:35 BUN 6 L (7-17) mg/dL Creatinine 0.45 L (0.52-1.04) mg/dL Urine Appearance Cloudy H (Clear) Urine Protein 1+ H (Negative) Urine Ketones Trace H (Negative) Ur Leukocyte Esterase Moderate H (Negative) Urine WBC 9 H (0-5) /hpf Ur Squamous Epith Cells 10 H (0-4) /hpf Urine Bacteria Few H (None) /hpf Urine Mucus Moderate H (None) /hpf Assessment and Plan Assessment: This is a 40-year-old 7 para 4 female 36-4/7 weeks gestation with severe preeclampsia, uncontrolled diabetes, previous section 4, morbid obesity, elderly multipara, and desires permanent sterilization. Plan is repeat low transverse section and bilateral partial salpingectomy. Patient does understand that a tubal ligation is considered permanent although there is a failure rate of less than 5 per thousand procedures done. She also understands that surgery itself and apparently has risks including risks of infection, bleeding, possible injury to bowel, bladder, vessels, and/or other organs. All the patient's questions are answered and a written consent is obtained. (1) 36 weeks gestation of Current Visit: Yes Status: Acute Code(s): Z3A.36 - 36 WEEKS GESTATION OF SNOMED Code(s): 59528224 (2) Gestational diabetes Current Visit: Yes Status: Acute Code(s): O24.419 - GESTATIONAL DIABETES MELLITUS IN , UNSP CONTROL SNOMED Code(s): 96464311 (3) Morbid (severe) obesity due to excess calories Current Visit: Yes Status: Acute Code(s): E66.01 - MORBID (SEVERE) OBESITY DUE TO EXCESS CALORIES SNOMED Code(s): 056462056 (4) Previous delivery affecting Current Visit: Yes Status: Acute Code(s): O34.219 - MATERNAL CARE FOR UNSP TYPE SCAR FROM PREVIOUS DEL SNOMED Code(s): 891892035 (5) Family planning Current Visit: Yes Status: Acute Code(s): Z30.09 - ENCOUNTER FOR OT GENERAL CNSL AND ADVICE ON CONTRACEPTION SNOMED Code(s): 331007729 (6) Substance abuse affecting in third trimester, antepartum Current Visit: Yes Status: Acute Code(s): O99.323 - DRUG USE COMPLICATING , THIRD TRIMESTER SNOMED Code(s): 92809017
--- NOTE | 2020-10-11 18:24 | P.OP ---
Date of Procedure: 10/11/20 Preoperative Diagnosis: #1: 36-4/7 week uterine . #2: Uncontrolled gestational diabetes. #3: Severe preeclampsia. #4: Previous section 4. #5: Multi parity desires permanent sterilization. 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 Brief summary this 40-year-old 7 para 4 female with severe preeclampsia, uncontrolled diabetes, previous section, and requesting permanent sterilization. Patient presented earlier today with high blood pressure was diagnosed with severe preeclampsia and after discussion with maternal medicine we elected to proceed with delivery at this time. Patient does understand the surgery and risks including risks of infection, bleeding, possible injury bowel, bladder, vessels, and other organs. Patient also understands risk of DVT and pulmonary embolism. All the patient's questions are answered and a written consent is obtained. Operative Findings: This is a vigorous viable female Apgars 8 and 9 delivery time was 1704 hrs. Infant has spontaneous respirations and good cry. The had a narrow frontal skull bone and findings consistent with possible cranial stenosis. Uterus tubes and ovaries appear normal for term gestation Description of Procedure: This patient has a Apple catheter placed to straight drain. She is subsequently taken to the operating room where she is sat up and spinal anesthetic is administered without incident. With an adequate level of anesthesia we first place the abdominal pannus retractor and secure this to the operating room table . She then has an abdominal prep and drape in the usual sterile fashion. Using a scalpel I then incised the previous Pfannenstiel incision. A second scalpel is taken down the fascia. Fascia is then scored with a knife. Fascial incision extended bilaterally using the Kim scissors. Fascia is then dissected off the rectus muscles sharply. I did enter the peritoneum at this time. Peritoneal i ncision is extended superiorly and inferiorly. Bladder blade is then placed. Due to the previous history of a thin lower uterine segment I selected area a low-transverse uterus but up higher and using a scalpel make a low transverse uterine incision. Using a hemostat I enter the uterine cavity bluntly and there is loss of a large amount of amniotic fluid that is clear. With this done the infant's head is then guided through the incision and with fundal pressure with delivery of the 's head. Mouth and nares are bulb suctioned. There is no evidence of a nuchal cord. With more fundal pressure we then deliver the rest of this infant's body. This is a vigorous viable female infant Apgars are 8 and 9 delivery time is 1704 hrs. has spontaneous respirations and good cry. 's weight is 10 lbs. 4 oz. Initial inspection by the nurses shows a written does appear to be a prominent and narrowed frontal skull bone consistent with possible craniostenosis. Muffle Operator will evaluate. After delivery of the the umbilical cord is doubly clamped and cut and the placenta is manually extracted intact. Uterus is then externalized and uterine incision demarcated with Gruber clamps. Excess tissue is removed and the uterine cavity. Uterus incision is then closed in 0 Vicryl running locked fashion in 2 layers. There is a small defect in the right uterine vein and this is doubly ligated with a piece of 0 Vicryl with excellent hemostasis. With this done I then turned my attention of the left fallopian tube approximately 4 cm from the cornual insertion a small window through the mesial salpinx. Using a 2-0 silk I doubly ligate a 2 cm segment of the tube. This is excised and handed off to pathology. Cauterization is done of the tubal ends. I then turned my attention to the right fallopian tube and using a similar technique similar results. With this completed and excellent hemostasis noted excess fluid is removed from the abdomen and pelvis. Uterus placed back into the abdomen. Inspection again done of the tubal ends the uterine incision shows all be hemostatic. The parietal peritoneum was then closed using 0 Vicryl running fashion. The fascial incision is then closed using 0 PDS. Fascial incision is intact and hemostatic. Subcutaneous tissues and closed using a 3-0 Vicryl. Skin is then closed using maddie. All counts are correct 3. There are no complications. We will begin magnesium sulfate per [facility] recommendations.
[2020-10-11] MEDS: MAGNESIUM SULFATE-WATER PMX 20 GM in WATER FOR INJECTION 1 500ML.BAG IV SCH (18:45)
[2020-10-11] MEDS: LABETALOL 100 MG TAB PO SCH (21:24)
[2020-10-12] MEDS: ceFAZolin 3 GM in SODIUM CHLORIDE 0.9% 100 ML IVPB SCH ×2 (01:09→08:50)
[2020-10-12] MEDS: KETOROLAC 15 MG/ML 1 ML VIAL IVP PRN ×4 (01:09→21:29)
[2020-10-12 03:31] LABS: Hemoglobin A1C 6.7 % (4.0-6.0)
[2020-10-12] MEDS: MAGNESIUM SULFATE-WATER PMX 20 GM in WATER FOR INJECTION 1 500ML.BAG IV SCH (04:50)
[2020-10-12] MEDS: LACTATED RINGERS 1,000 ML IV SCH ×2 (06:01)
[2020-10-12 07:14] LABS: Basophils % (A) 0 %; Eosinophils % (A) 1 %; HGB 10.7 gm/dL (11.4-16.0); Lymphocytes # (A) 1.4 k/uL (1.0-4.8); Lymphocytes % (A) 20 %; MCHC 35.5 g/dL (31.0-37.0); Mean Platelet Volume 10.2; Monocytes # (A) 0.4 k/uL (0-1.0); Monocytes % (A) 6 %; Neutrophils # (A) 5.2 k/uL (1.3-7.7); Neutrophils % (A) 73 %; Platelet Count 146 k/uL (150-450); RBC 3.23 m/uL (3.80-5.40); RDW 13.4 % (11.5-15.5); WBC 7.1 k/uL (3.8-10.6)
--- NOTE | 2020-10-12 07:32 | P.PNOBGPC ---
Subjective - Subjective Patient reports: Reports appetite normal, Reports voiding normally, Reports pain well controlled, Reports ambulating normally : doing well Objective - Vital Signs Latest vital signs: Vital Signs Temp Pulse Resp BP Pulse Ox 10/12/20 06:00 76 16 104/68 97 10/12/20 05:00 69 16 103/66 97 10/12/20 04:00 97.6 F 72 16 101/60 97 10/12/20 03:00 70 16 98/54 96 10/12/20 02:00 74 16 98/55 98 10/12/20 01:00 78 16 98/55 96 10/12/20 00:00 96.1 F L 74 16 101/51 96 10/11/20 23:00 76 18 115/58 98 10/11/20 22:00 76 18 115/57 97 10/11/20 21:00 75 18 132/60 97 10/11/20 20:00 97.6 F 74 16 138/68 99 10/11/20 19:37 67 16 141/73 99 10/11/20 19:07 72 17 148/74 100 10/11/20 18:37 97.0 F L 69 17 136/63 10/11/20 18:26 63 17 137/66 98 10/11/20 18:08 71 18 148/74 98 10/11/20 17:52 72 18 141/75 98 10/11/20 17:45 98 10/11/20 17:37 97.5 F L 73 18 136/73 98 10/11/20 14:00 96.8 F L 95 18 171/81 Intake and Output 10/11/20 10/12/20 10/12/20 22:59 06:59 14:59 Intake Total 700 500 Output Total 650 750 Balance 50 -250 Intake: IV 700 Intake, IV Titration 500 Amount Magnesium Sulfate-Water 500 Pmx 20 gm In Water For Injection 1 500ml.bag @ 2 GM/HR 50 mls/hr IV .Q10H [facility] Rx#:[id number] Output: Urine 650 750 Other: Voiding Method Indwelling Catheter Indwelling Catheter - Exam Lungs: bilateral: normal Chest: Normal S1, Normal S2 Extremities: Present: normal Abdomen: Present: normal appearance, soft. Absent: distention, tenderness Incision: Present: normal, dry, intact Uterus: Present: normal, firm - Labs Labs: Abnormal Lab Results - Last 24 Hours (Table) 10/11/20 10/11/20 10/11/20 Range/Units 12:00 12:35 12:35 RBC (3.80-5.40) m/uL Hgb (11.4-16.0) gm/dL Hct (34.0-46.0) % Plt Count (150-450) k/uL BUN 6 L (7-17) mg/dL Creatinine 0.45 L (0.52-1.04) mg/dL Hemoglobin A1c 6.7 H (4.0-6.0) % Urine Appearance Cloudy H (Clear) Urine Protein 1+ H (Negative) Urine Ketones Trace H (Negative) Ur Leukocyte Esterase Moderate H (Negative) Urine WBC 9 H (0-5) /hpf Ur Squamous Epith Cells 10 H (0-4) /hpf Urine Bacteria Few H (None) /hpf Urine Mucus Moderate H (None) /hpf 10/12/20 Range/Units 06:31 RBC 3.23 L (3.80-5.40) m/uL Hgb 10.7 L (11.4-16.0) gm/dL Hct 30.0 L (34.0-46.0) % Plt Count 146 L (150-450) k/uL BUN (7-17) mg/dL Creatinine (0.52-1.04) mg/dL Hemoglobin A1c (4.0-6.0) % Urine Appearance (Clear) Urine Protein (Negative) Urine Ketones (Negative) Ur Leukocyte Esterase (Negative) Urine WBC (0-5) /hpf Ur Squamous Epith Cells (0-4) /hpf Urine Bacteria (None) /hpf Urine Mucus (None) /hpf Assessment and Plan Assessment: Postoperative day #1. Patient is resting without new complaints. Vital signs are stable her blood pressures are excellent. I did start her on some Labetalol 100 mg by mouth twice a day but since being on the magnesium sulfate her blood pressures of actually been low. I'm going to discontinue her magnesium sulfate and will hold her morning Labetalol pending her blood pressures throughout the day. Incision is intact and dry. Patient is having excellent urine output. Plan today is to advance her diet, encourage ambulation, allow the patient to shower, discontinue her magnesium sulfate and then approximately 1 hour later will get rid of her Apple catheter. Platelets today were 146 therefore repeat her CBC tomorrow. Hemoglobin is normal for postoperative state. (1) 36 weeks gestation of Current Visit: Yes Status: Acute Code(s): Z3A.36 - 36 WEEKS GESTATION OF SNOMED Code(s): 39941118 (2) Gestational diabetes Current Visit: Yes Status: Acute Code(s): O24.419 - GESTATIONAL DIABETES MELLITUS IN , UNSP CONTROL SNOMED Code(s): 73673762 (3) Morbid (severe) obesity due to excess calories Current Visit: Yes Status: Acute Code(s): E66.01 - MORBID (SEVERE) OBESITY DUE TO EXCESS CALORIES SNOMED Code(s): 558294242 (4) Previous delivery affecting Current Visit: Yes Status: Acute Code(s): O34.219 - MATERNAL CARE FOR UNSP TYPE SCAR FROM PREVIOUS DEL SNOMED Code(s): 436316868 (5) Family planning Current Visit: Yes Status: Acute Code(s): Z30.09 - ENCOUNTER FOR OT GENERAL CNSL AND ADVICE ON CONTRACEPTION SNOMED Code(s): 344425829 (6) Substance abuse affecting in third trimester, antepartum Current Visit: Yes Status: Acute Code(s): O99.323 - DRUG USE COMPLICATING , THIRD TRIMESTER SNOMED Code(s): 18320058
[2020-10-12] MEDS: LABETALOL 100 MG TAB PO SCH ×2 (08:15→21:31)
[2020-10-12] MEDS: SENNOSIDES-DOCUSATE SODIUM 1 EACH TAB PO PRN (08:49)
--- NOTE | 2020-10-12 21:11 | P.PN ---
Progress Note - Text Date:10/12/20 Time:702am Patient is status post . Patient seen this morning with VAS score of 4. c/o of pruritus, no c/o nausea/vomiting, comfortable and doing well.
[2020-10-13] MEDS: ACETAMINOPHEN TAB 500 MG TAB PO PRN ×3 (00:20→16:47)
[2020-10-13] MEDS: IBUPROFEN 600 MG TAB PO PRN ×3 (04:33→20:02)
[2020-10-13 05:33] LABS: Basophils % (A) 0 %; Eosinophils # (A) 0.1 k/uL (0-0.7); Eosinophils % (A) 2 %; HCT 32.5 % (34.0-46.0); HGB 11.1 gm/dL (11.4-16.0); Lymphocytes # (A) 1.4 k/uL (1.0-4.8); Lymphocytes % (A) 16 %; MCH 32.1 pg (25.0-35.0); MCHC 34.2 g/dL (31.0-37.0); MCV 93.9 fL (80.0-100.0); Mean Platelet Volume 9.9; Monocytes # (A) 0.6 k/uL (0-1.0); Monocytes % (A) 6 %; Neutrophils # (A) 6.6 k/uL (1.3-7.7); Neutrophils % (A) 76 %; Platelet Count 165 k/uL (150-450); RBC 3.47 m/uL (3.80-5.40); RDW 13.6 % (11.5-15.5); WBC 8.7 k/uL (3.8-10.6)
[2020-10-13] MEDS: SENNOSIDES-DOCUSATE SODIUM 1 EACH TAB PO PRN ×2 (07:52→20:02)
[2020-10-13] MEDS: LABETALOL 100 MG TAB PO SCH ×4 (07:53→21:35)
--- NOTE | 2020-10-13 08:04 | P.PNOBGPC ---
Subjective - Subjective Patient reports: Reports appetite normal, Reports voiding normally, Reports pain well controlled, Reports ambulating normally : doing well Objective - Vital Signs Latest vital signs: Vital Signs Temp Pulse Resp BP Pulse Ox 10/13/20 07:59 98.3 F 80 16 151/85 98 10/13/20 04:00 84 16 123/70 10/13/20 00:00 97.2 F L 84 16 125/74 10/12/20 20:00 86 16 126/76 10/12/20 16:00 97.8 F 80 16 125/83 10/12/20 11:53 97.8 F 70 17 110/72 99 - Exam Lungs: bilateral: normal Chest: Normal S1, Normal S2 Extremities: Present: normal Abdomen: Present: normal appearance, soft. Absent: distention, tenderness Incision: Present: normal, dry, intact Uterus: Present: normal, firm - Labs Labs: Abnormal Lab Results - Last 24 Hours (Table) 10/13/20 Range/Units 04:48 RBC 3.47 L (3.80-5.40) m/uL Hgb 11.1 L (11.4-16.0) gm/dL Hct 32.5 L (34.0-46.0) % Assessment and Plan Assessment: Postoperative day #2. Patient is resting without new complaints. Vital signs are stable she is afebrile. Her blood pressure is mildly elevated today but this is to be expected. She is on labetalol 100 mg by mouth twice a day. Magnesium sulfate has been discontinued and she is urinating without difficulty. Uterus is firm nontender and her incision is intact and dry. Repeat CBC today shows her platelets to be normal at 165. Her baby remains in special care at this time. Plan is to continue postoperative care. Most likely will go home in 1-2 days. (1) 36 weeks gestation of Current Visit: Yes Status: Acute Code(s): Z3A.36 - 36 WEEKS GESTATION OF SNOMED Code(s): 01404111 (2) Gestational diabetes Current Visit: Yes Status: Acute Code(s): O24.419 - GESTATIONAL DIABETES MELLITUS IN , UNSP CONTROL SNOMED Code(s): 23564049 (3) Morbid (severe) obesity due to excess calories Current Visit: Yes Status: Acute Code(s): E66.01 - MORBID (SEVERE) OBESITY DUE TO EXCESS CALORIES SNOMED Code(s): 536209300 (4) Previous delivery affecting Current Visit: Yes Status: Acute Code(s): O34.219 - MATERNAL CARE FOR UNSP TYPE SCAR FROM PREVIOUS DEL SNOMED Code(s): 820290955 (5) Family planning Current Visit: Yes Status: Acute Code(s): Z30.09 - ENCOUNTER FOR OTH GENERAL CNSL AND ADVICE ON CONTRACEPTION SNOMED Code(s): 360083828 (6) Substance abuse affecting in third trimester, antepartum Current Visit: Yes Status: Acute Code(s): O99.323 - DRUG USE COMPLICATING , THIRD TRIMESTER SNOMED Code(s): 76655506
[2020-10-14] MEDS: IBUPROFEN 600 MG TAB PO PRN ×3 (05:46→23:16)
--- NOTE | 2020-10-14 07:53 | P.PNOBGPC ---
Subjective - Subjective Principal diagnosis: S/P RLTCS with TL POD #3 Interval history: Patient seen and examined at bedside. She is complaining of some incisional discomfort. Taking ibuprofen and Tylenol. She had some elevated blood pressures last night and the labetalol was increased to 200 twice a day by Dr. Carty. Patient reports: Reports appetite normal, Reports voiding normally, Reports pain well controlled, Reports ambulating normally Objective - Vital Signs Latest vital signs: Vital Signs Temp Pulse Resp BP Pulse Ox 10/13/20 23:54 97 F L 72 14 150/80 98 10/13/20 21:20 78 188/88 10/13/20 21:00 97.7 F 88 14 166/78 99 10/13/20 16:00 97.9 F 78 16 131/78 10/13/20 07:59 98.3 F 80 16 151/85 98 - Exam Lungs: bilateral: normal Chest: Normal S1, Normal S2 Extremities: Present: normal Abdomen: Present: normal appearance, soft. Absent: distention, tenderness Incision: Present: normal, dry, intact Uterus: Present: normal, firm Assessment and Plan (1) Status post repeat low transverse section Current Visit: Yes Status: Acute Code(s): Z98.891 - HISTORY OF UTERINE SCAR FROM PREVIOUS SURGERY SNOMED Code(s): 798109096 (2) Status post tubal ligation at time of delivery, current hosp Current Visit: Yes Status: Acute Code(s): O80 - ENCOUNTER FOR FULL-TERM UNCOMPLICATED DELIVERY; Z30.2 - ENCOUNTER FOR STERILIZATION SNOMED Code(s): 156743781 (3) Preeclampsia Current Visit: Yes Status: Acute Code(s): O14.90 - UNSPECIFIED PRE- ECLAMPSIA, UNSPECIFIED TRIMESTER SNOMED Code(s): 327422230 Plan: 1. Continue labetalol 200 twice a day and monitor blood pressures closely today 2. Increase ambulation 3. Pain control
[2020-10-14] MEDS: SENNOSIDES-DOCUSATE SODIUM 1 EACH TAB PO PRN (09:42)
[2020-10-14] MEDS: LABETALOL 100 MG TAB PO SCH ×2 (09:43→18:05)
[2020-10-14] MEDS: ACETAMINOPHEN TAB 500 MG TAB PO PRN (17:28)
[2020-10-14] MEDS: LACTATED RINGERS 1,000 ML IV SCH (21:16)
[2020-10-15] MEDS: LABETALOL 100 MG TAB PO SCH ×2 (01:49→10:36)
[2020-10-15] MEDS: ACETAMINOPHEN TAB 500 MG TAB PO PRN (04:59)
[2020-10-15] MEDS: IBUPROFEN 600 MG TAB PO PRN (04:59)
--- NOTE | 2020-10-15 08:10 | P.DS ---
Providers Date of admission: 10/11/20 13:12 Expected date of discharge: 10/15/20 Attending physician: Anjali Aparicio Primary care physician: Stated None - Discharge Diagnosis(es) (1) Status post repeat low transverse section Current Visit: Yes Status: Acute (2) Status post tubal ligation at time of delivery, current hosp Current Visit: Yes Status: Acute (3) Preeclampsia Current Visit: Yes Status: Acute Hospital Course: She presented at 36+ weeks with elevated blood pressure. She is diagnosed with preeclampsia and delivered by repeat low transverse with tubal ligation as planned. She is on magnesium sulfate for 24 hours after delivery. Her blood pressures then did start to increase again and she was placed on labetalol 200 mg 3 times a day which is holding her blood pressures are 140s to 150s over 60s to 70s. She denies any signs or symptoms of preeclampsia, no headache no vision changes no right upper quadrant pain denies nausea, vomiting, chest pain, shortness of breath or any calf pain. Her incision is clean, dry, intact with maddie. She is ambulating voiding without difficulty. Tolerating regular diet and passing flatus. Patient will be discharged home on labetalol 200 mg 3 times daily to see me in one week. Patient Condition at Discharge: Stable Plan - Discharge Summary New Discharge Prescriptions: New Ibuprofen [Motrin] 600 mg PO Q6H PRN #40 tab PRN Reason: Pain Labetalol [Trandate] 200 mg PO Q8H #90 tab oxyCODONE HCL [OxyIR] 5 mg PO Q4HR PRN #18 tab PRN Reason: Pain Scale 4 - 6 Continue Pnv No.95/Ferrous Fum/Folic AC [ Multivitamin Tablet] 1 tab PO DAILY Discontinued INSULIN LISPRO (humaLOG) [humaLOG] 20 units SQ DIRECTED Insulin Glargine [Lantus] 70 unit SQ HS No Action Loratadine [Claritin] 10 mg PO DAILY #30 tab Discharge Medication List Loratadine [Claritin] 10 mg PO DAILY #30 tab 08/21/13 [Rx] Pnv No.95/Ferrous Fum/Folic AC [ Multivitamin Tablet] 1 tab PO DAILY 05/15/18 [History] Ibuprofen [Motrin] 600 mg PO Q6H PRN #40 tab 10/15/20 [Rx] Labetalol [Trandate] 200 mg PO Q8H #90 tab 10/15/20 [Rx] oxyCODONE HCL [OxyIR] 5 mg PO Q4HR PRN #18 tab 10/15/20 [Rx] Follow up Appointment(s)/Referral(s): Anjali Aparicio DO [Doctor of Osteopathic Medicine] - 1 Week Discharge Disposition: HOME SELF-CARE
[2020-10-15 08:16] VITALS: TEMP 98.9
[2020-10-15 09:10] VITALS: PULSE 74; RESP 18
[2020-10-15 09:20] VITALS: BP 142/79
== END 2020-10-15 13:15 | disposition home or self-care (01) | DRG 784 ==
LOC: FBPOP 11:54 → 4FBP 13:12
PROVIDERS: ADMIT Obstetrics & Gynecology; ATTEND Obstetrics & Gynecology
PROC: 0UB70ZZ Excision of Bilateral Fallopian Tubes, Open Approach (ICD-10-PCS; 2020-10-11)
PROC: 10D00Z1 Extraction of Products of Conception, Low, Open Approach (ICD-10-PCS; principal; 2020-10-11 16:30)
DX: O15.1 Eclampsia complicating labor (principal); O99.324 Drug use complicating childbirth; E66.01 Morbid (severe) obesity due to excess calories; F12.10 Cannabis abuse, uncomplicated; F32.9 Major depressive disorder, single episode, unspecified; O14.14 Severe pre-eclampsia complicating childbirth; O24.424 Gestational diabetes mellitus in childbirth, insulin controlled; O34.211 Maternal care for low transverse scar from previous cesarean delivery; O99.214 Obesity complicating childbirth; O99.344 Other mental disorders complicating childbirth; Z30.2 Encounter for sterilization; Z37.0 Single live birth; Z3A.36 36 weeks gestation of pregnancy; Z83.3 Family history of diabetes mellitus; Z87.891 Personal history of nicotine dependence
CPT/HCPCS: 59025; 80306; 81001; 82565; 82570; 83036; 83615; 84156; 84450; 84460; 84520; 84550; 85025; 85610; 85730; 86850; 86900; 86901; 88302; 88307; 99215

== ENCOUNTER 2021-01-12 14:05 | Emergency (ER) | payer OTHER ==
[2021-01-12 14:28] VITALS: BP 108/66; PULSE 83; RESP 18; TEMP 98
--- NOTE | 2021-01-12 14:31 | ED ---
General Adult HPI - General Chief complaint: Recheck/Abnormal Lab/Rx Stated complaint: COVID Exposure Time Seen by Provider: 01/12/21 14:19 Source: patient Mode of arrival: ambulatory Limitations: no limitations - History of Present Illness Initial comments: Dictation was produced using [employer] dictation software. please excuse any grammatical, word or spelling errors. Chief Complaint: 40-year-old female requesting coronavirus testing History of Present Illness: Patient is a 40-year-old female she presents to the emergency department for coronavirus testing. Patient has been having nasal stuffiness for the last 2 days. Family member and child at the bedside both tested positive for coronavirus today. Patient is vaccinated. She denies any shortness of breath. No cough no sore throat. The ROS documented in this emergency department record has been reviewed and confirmed by me. Those systems with pertinent positive or negative responses have been documented in the HPI. All other systems are other negative and/or noncontributory. PHYSICAL EXAM: General Impression: Alert and oriented x3, not in acute distress HEENT: Normocephalic atraumatic, extra-ocular movements intact, pupils equal and reactive to light bilaterally, mucous membranes moist. Cardiovascular: Heart regular rate and rhythm Chest: Able to complete full sentences, no retractions, no tachypnea Abdomen: abdomen soft, non-tender, non-distended, no organomegaly Motor: no focal deficits noted Neurological: CN II-XII grossly intact, no focal motor or sensory deficits noted Skin: Intact with no visualized rashes Psych: Normal affect and mood ED course: 40-year-old female presents to emergency department for coronavirus testing. She's been symptomatic for 2 days. Patient's immediate family tested positive. Patient is vaccinated. No hypoxia. No dyspnea. Vital signs upon arrival are within acceptable limits. Patient would prefer to be discharged and for us to call her with the results because she does not want to wait. Patient meets criteria for monoclonal antibody infusion given her body mass index. She is encouraged to return to the emergency department for monoclonal antibody infusion if she is positive. Counseled on coronavirus precautions. - Related Data Home Medications Medication Instructions Recorded Confirmed Pnv No.95/Ferrous Fum/Folic AC 1 tab PO DAILY 05/15/18 10/11/20 [ Multivitamin Tablet] Previous Rx's Medication Instructions Recorded Loratadine [Claritin] 10 mg PO DAILY #30 tab 08/21/13 Ibuprofen [Motrin] 600 mg PO Q6H PRN #40 tab 10/15/20 Labetalol [Trandate] 200 mg PO Q8H #90 tab 10/15/20 oxyCODONE HCL [OxyIR] 5 mg PO Q4HR PRN #18 tab 10/15/20 Allergies Allergy/AdvReac Type Severity Reaction Status Date / Time No Known Allergies Allergy Verified 10/11/20 12:11 Review of Systems ROS Statement: Those systems with pertinent positive or pertinent negative responses have been documented in the HPI. ROS Other: All systems not noted in ROS Statement are negative. Past Medical History Past Medical History: No Reported History Additional Past Medical History / Comment(s): Depression, Gest diabetes History of Any Multi-Drug Resistant Organisms: None Reported Past Surgical History: Section Additional Past Surgical History / Comment(s): x5 and x2 D&C Past Anesthesia/Blood Transfusion Reactions: No Reported Reaction Past Psychological History: Depression Smoking Status: Former smoker Past Alcohol Use History: Occasional Past Drug Use History: Marijuana - Past Family History Mother Family Medical History: Cancer, Diabetes Mellitus General Exam Limitations: no limitations Course Vital Signs 01/12/21 14:19 Temperature 98.0 F Pulse Rate 83 Respiratory 18 Rate Blood Pressure 108/66 O2 Sat by Pulse 96 Oximetry Disposition Clinical Impression: Coronavirus infection Disposition: HOME SELF-CARE Condition: Good Instructions (If sedation given, give patient instructions): Coronavirus Disease 2019 (COVID-19) Is patient prescribed a controlled substance at d/c from ED?: No Referrals: Susie Esquivel FNPBC [Primary Care Provider] - 1-2 days
== END 2021-01-12 14:40 | disposition home or self-care (01) ==
LOC: EC 14:05
DX: R09.81 Nasal congestion (principal); F32.9 Major depressive disorder, single episode, unspecified; F12.90 Cannabis use, unspecified, uncomplicated; Z87.891 Personal history of nicotine dependence; Z20.822 Contact with and (suspected) exposure to COVID-19; Z79.1 Long term (current) use of non-steroidal anti-inflammatories (NSAID)
CPT/HCPCS: 87635; 99283

== ENCOUNTER → 2021-04-07 | Outpatient (CLI) | payer OTHER | END | disposition home or self-care (01) | LOC: LABPAT 10:20 | PROVIDERS: ATTEND Obstetrics & Gynecology | DX: Z01.812 Encounter for preprocedural laboratory examination (principal) | CPT/HCPCS: 93005 ==

== ENCOUNTER 2021-04-08 06:14 | Day surgery (SDC) | payer OTHER ==
[2021-04-04 12:13] VITALS: BMI 50.5
[~2021-04-08 06:14] MED LIST: Pre Op ABX Message 1 EACH MISC MISCELLANE ONE
[2021-04-08] MEDS ORDERED: ONDANSETRON 4 MG/2 ML VIAL IVP ONE (06:33)
[2021-04-08] MEDS ORDERED: LACTATED RINGERS 1,000 ML IV SCH (06:33)
[2021-04-08] MEDS ORDERED: SCOPOLAMINE 1.5MG/72HR PATCH TRANSDERM ONE ×2 (06:33→07:15)
[2021-04-08] MEDS ORDERED: LIDOCAINE 1% (10MG/ML) FOR IV START INTRADERMA PRN (06:33)
[2021-04-08] MEDS ORDERED: DEXAMETHASONE SOD PHOSPHATE 4 MG/ML 1 ML VIAL IV ONE ×2 (06:33→07:15)
[2021-04-08] MEDS ORDERED: HYDROmorphone 0.5 MG/0.5 ML SYRINGE IVP PRN (07:00)
[2021-04-08] MEDS ORDERED: LIDOCAINE 1% (10MG/ML) FOR IV START INTRADERMA ONE (07:04)
[2021-04-08] MEDS ORDERED: LACTATED RINGERS 1,000 ML IV ONE (07:04)
[2021-04-08 07:09] LABS: Glucose,Whole Blood 189 mg/dL (75-99)
[2021-04-08] MEDS ORDERED: ONDANSETRON 4 MG/2 ML VIAL ONE (07:10)
[2021-04-08] MEDS ORDERED: MIDAZOLAM 2 MG/2 ML VIAL IV ONE (07:16)
[2021-04-08] MEDS ORDERED: fentaNYL (PF) 50 MCG/ML 2 ML AMP ONE (07:21)
[2021-04-08] MEDS ORDERED: SUCCINYLCHOLINE CHLORIDE VIAL 200 MG/10 ML VIAL IV ONE (07:21)
[2021-04-08] MEDS ORDERED: LIDOCAINE 1% INJ 10MG/ML (20 ML MDV) ONE (07:21)
[2021-04-08] MEDS ORDERED: PROPOFOL 10 MG/ML 20 ML VIAL IV ONE (07:21)
--- NOTE | 2021-04-08 07:29 | P.HPOB ---
History of Present Illness H&P Date: 04/08/21 Chief Complaint: ESPINOZA II 40 year old presents for LEEP. She had ASCUS pap and ESPINOZA II on colp from [facility]. Review of Systems All systems: negative Constitutional: Denies chills, Denies fever Eyes: denies blurred vision, denies pain Ears, nose, mouth and throat: Denies headache, Denies sore throat Cardiovascular: Denies chest pain, Denies shortness of breath Respiratory: Denies cough Gastrointestinal: Denies abdominal pain, Denies diarrhea, Denies nausea, Denies vomiting Genitourinary: Denies dysuria, Denies hematuria Musculoskeletal: Denies myalgias Integumentary: Denies pruritus, Denies rash Neurological: Denies numbness, Denies weakness Psychiatric: Denies anxiety, Denies depression Endocrine: Denies fatigue, Denies weight change Past Medical History Past Medical History: Diabetes Mellitus, GERD/Reflux Additional Past Medical History / Comment(s): hx Gestational Diabetes, "Borderline Diabetic, supposed to be on Metformin but I'm not taking it." History of Any Multi-Drug Resistant Organisms: None Reported Past Surgical History: Section, Tubal Ligation Additional Past Surgical History / Comment(s): Section X5, D&C X2. Past Anesthesia/Blood Transfusion Reactions: No Reported Reaction, Motion Sickness Past Psychological History: Depression Additional Psychological History / Comment(s): "Depression seems to be and from stress". Smoking Status: Former smoker Past Alcohol Use History: Occasional Additional Past Alcohol Use History / Comment(s): Quit smoking 01/2020, smoked on and off for 10 yrs. Past Drug Use History: None Reported - Past Family History Mother Family Medical History: Cancer, Diabetes Mellitus Medications and Allergies Home Medications Medication Instructions Recorded Confirmed Type Loratadine [Claritin] 10 mg PO DAILY PRN 04/04/21 04/08/21 History Allergies Allergy/AdvReac Type Severity Reaction Status Date / Time No Known Allergies Allergy Verified 04/08/21 06:43 Exam Osteopathic Statement: *. No significant issues noted on an osteopathic structural exam other than those noted in the History and Physical/Consult. Vital Signs Temp Pulse Resp BP Pulse Ox 04/08/21 06:49 97.4 F L 84 16 151/72 95 Intake and Output 04/07/21 04/07/21 04/08/21 14:59 22:59 06:59 Other: Weight 138.9 kg Heart: Regular rate and rhythm Lungs: Clear to auscultation bilaterally Abdomen: Soft, nontender Extremities: Negative Homans sign Assessment and Plan (1) ESPINOZA II (cervical intraepithelial neoplasia II) Current Visit: Yes Status: Acute Code(s): N87.1 - MODERATE CERVICAL DYSPLASIA SNOMED Code(s): 466370525 Plan: 1. LEEP. all R/B/A have been discussed.
[2021-04-08] MEDS ORDERED: FERRIC SUBSULFATE (MONSELS) JAR TOPICAL ONE (07:47)
[2021-04-08] MEDS ORDERED: ACETIC ACID 15 DROPS/ML DROPS MISCELLANE ONE (07:47)
--- NOTE | 2021-04-08 07:58 | P.OP ---
Date of Procedure: 04/08/21 Preoperative Diagnosis: 1. ESPINOZA II; discrepancy in pap and colposcopy Postoperative Diagnosis: 1. ESPINOZA II; discrepancy in pap and colposcopy Procedure(s) Performed: LEEP Anesthesia: CHERYL Surgeon: Anjali Aparicio Estimated Blood Loss (ml): 50 IV fluids (ml): 300 Urine output (ml): 40 Pathology: other (cervical cone) Condition: stable Disposition: PACU Description of Procedure: Patient is taken the operating room where general anesthesia was obtained without difficulty. She is prepped draped normal sterile fashion in the dorsal lithotomy position, legs placed in candycane stirrups. Bladder was drained of all urine. A coated bivalve speculum was placed in the vagina and suction. A 2 cm cauterization loop was attached to cautery and used to get a cervical cone specimen in one sweep. The ball cautery was then used to cauterize the cervical crater left from the biopsy. Monsel's was used to obtain excellent hemostasis. Patient to our procedure well, sponge management counts correct 2. She was taken to recovery in stable condition.
[2021-04-08 08:08] VITALS: TEMP 97.3
[2021-04-08 08:52] VITALS: RESP 14
[2021-04-08 09:23] VITALS: BP 117/74; PULSE 77
== END 2021-04-08 09:24 | disposition home or self-care (01) ==
LOC: OR 06:14
PROVIDERS: ATTEND Obstetrics & Gynecology
DX: N87.1 Moderate cervical dysplasia (principal)
CPT/HCPCS: 57460; 81025; J2250; J0330; J1100; J2405; J2001; J3010; J2704

== ENCOUNTER → 2022-05-12 | Outpatient (CLI) | payer OTHER ==
--- NOTE | 2022-05-13 09:20 | MM ---
Reason for Exam: Screening (asymptomatic). Baseline mammogram. Patient History: Menarche at age 13. First Full-Term at age 19. Premenopausal. Maternal aunt had breast cancer under age 50. Mother had ovarian cancer, age 23. Last menstrual period: 05/12/2022 Risk Values: Donna 5 year model risk: 0.4%. NCI Lifetime model risk: 7.3%. Prior Study Comparison: Patient's first Mammogram. Tissue Density: There are scattered fibroglandular densities. Findings: Analyzed By CAD. There is no suspicious group of microcalcifications or suspicious mass in either breast. Overall Assessment: Negative, BI-RAD 1 Management: Screening Mammogram of both breasts in 1 year. A clinical breast exam by your physician is recommended on an annual basis and results should be correlated with mammographic findings. Electronically signed and approved by: Bryn Huffman D.O.
== END | disposition home or self-care (01) ==
LOC: RADMAMWWP 09:24
PROVIDERS: ATTEND Family Medicine
DX: Z12.31 Encounter for screening mammogram for malignant neoplasm of breast (principal); Z80.3 Family history of malignant neoplasm of breast
CPT/HCPCS: 77067

== ENCOUNTER → 2023-04-15 | Outpatient (CLI) | payer OTHER ==
[2023-04-15 18:47] LABS: Basophils # (A) 0.06 X 10*3/uL (0.00-0.10); Basophils % (A) 0.6 %; Eosinophils % (A) 2.1 %; HCT 47.3 % (37.2-46.3); HGB 15.5 g/dL (12.0-15.0); Lymphocytes # (A) 3.26 X 10*3/uL (0.90-5.00); Lymphocytes % (A) 34.2 %; MCH 31.4 pg (27.0-32.0); MCHC 32.8 g/dL (32.0-37.0); MCV 95.9 FL (80.0-97.0); Mean Platelet Volume 11.7 FL (9.5-12.2); Monocytes % (A) 7.4 %; NRBC Per 100 WBC 0 X 10*3/uL (0.00-0.01); Neutrophils # (A) 5.28 X 10*3/uL (1.80-7.70); Neutrophils % (A) 55.5 %; Platelet Count 246 X 10*3/uL (140-440); RBC 4.93 X 10*6/uL (4.10-5.20); RDW 12.5 % (11.5-14.5); WBC 9.52 X 10*3/uL (4.50-10.00)
== END | disposition home or self-care (01) ==
LOC: LABPAT 15:07
PROVIDERS: ATTEND Obstetrics & Gynecology
DX: Z01.812 Encounter for preprocedural laboratory examination (principal)
CPT/HCPCS: 85025

== ENCOUNTER 2023-04-22 11:00 | Day surgery (SDC) | payer OTHER ==
--- NOTE | 2023-04-22 09:28 | P.HPOB ---
History of Present Illness H&P Date: 04/22/23 Chief Complaint: menorrhagia 42-year-old female presents with menorrhagia for a D&C hysteroscopy and endometrial ablation with NovaSure. Review of Systems All systems: negative Constitutional: Denies chills, Denies fever Eyes: denies blurred vision, denies pain Ears, nose, mouth and throat: Denies headache, Denies sore throat Cardiovascular: Denies chest pain, Denies shortness of breath Respiratory: Denies cough Gastrointestinal: Denies abdominal pain, Denies diarrhea, Denies nausea, Denies vomiting Genitourinary: Denies dysuria, Denies hematuria Musculoskeletal: Denies myalgias Integumentary: Denies pruritus, Denies rash Neurological: Denies numbness, Denies weakness Psychiatric: Denies anxiety, Denies depression Endocrine: Denies fatigue, Denies weight change Past Medical History Past Medical History: Cancer Additional Past Medical History / Comment(s): hx Gestational Diabetes, hx. cancerous cells cervix, sciatic nerve pain @times History of Any Multi-Drug Resistant Organisms: None Reported Past Surgical History: Section, Tubal Ligation Additional Past Surgical History / Comment(s): Section X5, D&C X2. LEEP procedure Past Anesthesia/Blood Transfusion Reactions: No Reported Reaction, Motion Sickness Smoking Status: Former smoker - Past Family History Mother Family Medical History: Cancer, Diabetes Mellitus Medications and Allergies Home Medications Medication Instructions Recorded Confirmed Type Cholecalciferol [Vitamin D3 (25 25 mcg PO DAILY 04/15/23 04/15/23 History Mcg = 1000 Iu)] Dulaglutide [Trulicity] 1.5 mg SQ BELL 04/15/23 04/15/23 History Allergies Allergy/AdvReac Type Severity Reaction Status Date / Time No Known Allergies Allergy Verified 04/15/23 15:22 Exam Osteopathic Statement: *. No significant issues noted on an osteopathic structural exam other than those noted in the History and Physical/Consult. Heart: Regular rate and rhythm Lungs: Clear to auscultation bilaterally Abdomen: Soft, nontender Extremities: Negative Homans sign Assessment and Plan (1) Menorrhagia Status: Acute Code(s): N92.0 - EXCESSIVE AND FREQUENT MENSTRUATION WITH REGULAR CYCLE SNOMED Code(s): 879379335 Plan: . D&C hysteroscopy endometrial ablation with NovaSure
[~2023-04-22 11:00] MED LIST changes: +DEXAMETHASONE SOD PHOSPHATE 4 MG/ML 1 ML VIAL IV ONE; +LACTATED RINGERS 1,000 ML IV SCH; +MIDAZOLAM 2 MG/2 ML VIAL IV PRN; +ONDANSETRON 4 MG/2 ML VIAL IVP ONE; +SCOPOLAMINE 1 MG/72 HR PATCH TRANSDERM ONE
[2023-04-22] MEDS ORDERED: LACTATED RINGERS 1,000 ML IV ONE (11:47)
[2023-04-22 11:49] LABS: Glucose,Whole Blood 133 mg/dL (70-110)
[2023-04-22] MEDS ORDERED: PROPOFOL 10 MG/ML 20 ML VIAL IV ONE (12:24)
[2023-04-22] MEDS ORDERED: KETOROLAC 30 MG/ML 1 ML VIAL ONE (12:24)
[2023-04-22] MEDS ORDERED: MIDAZOLAM 2 MG/2 ML VIAL ONE (12:24)
[2023-04-22] MEDS ORDERED: LIDOCAINE 1% INJ 10MG/ML (20 ML MDV) ONE (12:24)
[2023-04-22] MEDS ORDERED: SUCCINYLCHOLINE CHLORIDE 200 MG/10 ML VIAL IV ONE (12:24)
[2023-04-22] MEDS ORDERED: fentaNYL (PF) 50 MCG/ML 2 ML AMP ONE (12:24)
--- NOTE | 2023-04-22 13:04 | P.OP ---
Date of Procedure: 04/22/23 Preoperative Diagnosis: 1. menorrhagia Postoperative Diagnosis: same Procedure(s) Performed: D&C hysteroscopy and endometrial ablation with NovaSure Anesthesia: MAC Surgeon: Anjali Aparicio Estimated Blood Loss (ml): 2 IV fluids (ml): 500 Urine output (ml): 10 Pathology: other (endometrial currettings) Condition: stable Disposition: PACU Operative Findings: uterine length 6.5cm, width 3.4cm, power 122 W and time of ablation 52 seconds. adequate ablation after novaSure Description of Procedure: Patient is taken the operating room where general anesthesia was obtained without difficulty. She was prepped and draped in normal sterile fashion dorsal lithotomy position, legs placed in the Trelligencey cane stirrups. Bladder was drained of all urine. Weighted speculum placed in the vagina and the anterior lip the cervix was grasped with serial tooth tenaculum. The uterus sounded to 10 cm and the cervix under 3.5 cm making the cavity length 6.5 cm. The cervix was dilated to #8 Hegar dilator. Hysteroscopy was then performed. Both ostia were visualized and there was a smooth contour of the uterus. Sharp curet was then gently used to obtain endometrial curettings. The NovaSure was introduced into the uterus with a cavity length of 6.5 cm, width 3.4 cm. after cavity assessment was passed, the time of ablation was 52 seconds at 122 W. Hysteroscopy was again performed and adequate ablation was noted. All instruments removed from the vagina. Patient tolerated the procedure well, sponge and instrument counts were correct 2 and she was taken to recovery in stable condition.
[2023-04-22 13:21] LABS: Glucose,Whole Blood 131 mg/dL (70-110)
[2023-04-22 13:25] VITALS: TEMP 97.6
[2023-04-22] MEDS: HYDROmorphone 0.5 MG/0.5 ML SYRINGE IVP PRN ×2 (13:29→15:04)
[2023-04-22 15:45] VITALS: RESP 16
[2023-04-22 16:08] VITALS: BP 128/86; PULSE 103
--- NOTE | 2023-04-23 07:29 | P.CRDCN ---
History of Present Illness History of present illness: Cardiology consult placed postoperatively for atrial fibrillation. Spoke with RN , Karla, who stated the patient had an EKG completed revealing atrial fibrillation. She states the patient's heart rate was controlled in the 80s and the patient was not having any symptoms. EKG scanned into the computer and reviewed with Dr. Dye. EKG does not reveal atrial fibrillation as suggested by computer interpretation. EKG reveals sinus mechanism with PACs. Spoke with Karla again and relayed information the patient does not need to be admitted to the hospital and does not require cardiology consultation as the patient is not in atrial fibrillation. She may be discharged home today from a cardiac standpoint and follow up with her PCP. There is no need for her to follow up with [facility] post discharge. Past Medical History Past Medical History: Cancer Additional Past Medical History / Comment(s): hx Gestational Diabetes, hx. cancerous cells cervix, sciatic nerve pain @times History of Any Multi-Drug Resistant Organisms: None Reported Past Surgical History: Section, Tubal Ligation Additional Past Surgical History / Comment(s): Section X5, D&C X2. LEEP procedure Past Anesthesia/Blood Transfusion Reactions: No Reported Reaction, Motion Sickness Smoking Status: Former smoker - Past Family History Mother Family Medical History: Cancer, Diabetes Mellitus Medications and Allergies Home Medications Medication Instructions Recorded Confirmed Type Cholecalciferol [Vitamin D3 (25 25 mcg PO DAILY 04/15/23 04/22/23 History Mcg = 1000 Iu)] Dulaglutide [Trulicity] 1.5 mg SQ BELL 04/15/23 04/15/23 History Amoxic-Pot Clav 875-125Mg 04/22/23 04/22/23 History [Augmentin 875-125] Ibuprofen [Motrin] 600 mg PO Q6HR PRN #30 tab 04/22/23 Rx Allergies Allergy/AdvReac Type Severity Reaction Status Date / Time No Known Allergies Allergy Verified 04/22/23 11:30 Physical Exam Vitals: Vital Signs Temp Pulse Resp BP Pulse Ox 04/22/23 15:55 103 H 16 128/86 93 L 04/22/23 15:40 76 16 118/72 95 04/22/23 15:35 85 15 140/91 94 L 04/22/23 14:55 89 14 140/71 95 04/22/23 14:39 89 14 139/78 97 04/22/23 14:24 97 17 136/69 95 04/22/23 14:09 101 H 19 136/69 95 04/22/23 13:54 109 H 16 140/80 94 L 04/22/23 13:38 74 15 119/78 98 04/22/23 13:22 70 15 135/55 97 04/22/23 13:07 97.6 F 90 14 166/77 98 Intake and Output 04/22/23 04/23/23 04/23/23 22:59 06:59 14:59 Intake Total 500 Balance 500 Intake: IV 500 Results Cardiac Enzymes 04/22/23 Range/Units 14:39 Troponin I <0.012 (0.000-0.034) ng/mL Intake and Output 04/22/23 04/23/23 04/23/23 22:59 06:59 14:59 Intake Total 500 Balance 500 Intake: IV 500
--- NOTE | 2023-04-23 09:26 | CA ---
Transthoracic Echo Report Name: Payton Grey Age: 42 Gender: F : 1980 Exam Date: 04/22/2023 15:11 Exam Location: [place] [facility] Ht (in): 65 Wt (lb): 298 Ordering Physician: Sonali Giraldo Attending/Referring Phys: [id number], Enzo Caster Operator Ny Dewitt RDCS Procedure CPT: Indications: LV function Cardiac Hx: Technical Quality: Technically difficult study Contrast 1: Definity Total Dose (mL): 2 Contrast 2: Total Dose (mL): MEASUREMENTS (Male / Female) Normal Values 2D ECHO LV Diastolic Diameter PLAX 5.0 cm 4.2 - 5.9 / 3.9 - 5.3 cm LV Systolic Diameter PLAX 3.7 cm IVS Diastolic Thickness 1.4 cm 0.6 - 1.0 / 0.6 - 0.9 cm LVPW Diastolic Thickness 1.5 cm 0.6 - 1.0 / 0.6 - 0.9 cm LV Relative Wall Thickness 0.6 RV Internal Dim ED PLAX 3.0 cm LA Systolic Diameter LX 3.7 cm 3.0 - 4.0 / 2.7 - 3.8 cm LV Diastolic Volume MOD BP 80.9 cm??? 67 - 155 / 56 - 104 cm??? LV Systolic Volume MOD BP 31.8 cm??? 22 - 58 / 19 - 49 cm??? LV Ejection Fraction MOD BP 60.7 % >= 55 % LV Cardiac Index MOD BP 1528.3 cm???/min???m??? LV Diastolic Volume MOD 4C 92.3 cm??? LV Systolic Volume MOD 4C 34.8 cm??? LV Ejection Fraction MOD 4C 62.3 % LV Cardiac Index MOD 4C 1789.7 cm???/min???m??? LV Diastolic Length 4C 7.4 cm LV Systolic Length 4C 5.9 cm LV Diastolic Volume MOD 2C 71.2 cm??? LV Systolic Volume MOD 2C 25.9 cm??? LV Ejection Fraction MOD 2C 63.6 % LV Cardiac Index MOD 2C 1408.1 cm???/min???m??? LV Diastolic Length 2C 7.4 cm LV Systolic Length 2C 6.6 cm LA Volume 80.0 cm??? 18 - 58 / 22 - 52 cm??? LA Volume Index 31.1 cm???/m??? 16 - 28 cm???/m??? M-MODE Aortic Root Diameter MM 3.0 cm MV E Point Septal Separation 0.1 cm AV Cusp Separation MM 2.3 cm DOPPLER AV Peak Velocity 146.0 cm/s AV Peak Gradient 8.5 mmHg MV Area PHT 4.2 cm??? MV Deceleration Time 160.8 ms MV E' Velocity 10.2 cm/s FINDINGS Left Ventricle Left ventricular ejection fraction is estimated at 55-60 %. Left ventricular cavity size normal. Moderately increased septal wall thickness. Moderately increased posterior wall thickness. Right Ventricle Normal right ventricular size. Unable to estimate the right ventricular systolic pressure. Right Atrium Right atrium not well visualized. Left Atrium Mildly increased left atrial volume. Mildly increased left atrial area. Mitral Valve Structurally normal mitral valve. No mitral stenosis, regurgitation or prolapse. Aortic Valve Trileaflet aortic valve. No aortic valve stenosis or regurgitation. Tricuspid Valve Structurally normal tricuspid valve. No tricuspid stenosis, regurgitation or prolapse. Pulmonic Valve Pulmonic valve not well visualized. Pericardium No pericardial effusion. Aorta Normal size aortic root and proximal ascending aorta. CONCLUSIONS Technically difficult study. Echo contrast was used to optimize MH quality. Normal LV size and systolic function with [id number] concentric LVH Doppler exam is suboptimal but no significant abnormalities. No pericardial effusion Previewed by: Dr. Isidro Dye MD (Electronically Signed) Final Date: 23 April 2023 09:25
== END 2023-04-22 16:26 | disposition home or self-care (01) ==
LOC: OR 11:00
PROVIDERS: ATTEND Obstetrics & Gynecology
DX: N92.0 Excessive and frequent menstruation with regular cycle (principal); Z87.891 Personal history of nicotine dependence; Z85.41 Personal history of malignant neoplasm of cervix uteri
CPT/HCPCS: 81025; 88305; 84484; 58563; C8929; J2250; J0330; J1100; J2405; J2001; J3010; J1885; Q9957; J2704; J1170; 93306

== ENCOUNTER → 2023-06-14 | Outpatient (CLI) | payer OTHER ==
--- NOTE | 2023-06-14 15:30 | MM ---
Reason for Exam: Screening (asymptomatic). Last mammogram was performed 1 year(s) and 1 month(s) ago. Patient History: Menarche at age 13. First Full-Term at age 19. Premenopausal. Maternal aunt had breast cancer under age 50. Maternal grandmother had ovarian cancer. Mother had ovarian cancer, age 23. Risk Values: Donna 5 year model risk: 0.4%. NCI Lifetime model risk: 7.3%. Prior Study Comparison: 05/12/2022 Bilateral MG screening mammo w CAD, [facility]. Tissue Density: There are scattered fibroglandular densities. Findings: Analyzed By CAD. Pattern appears symmetrical and stable. No significant interval change is evident. No suspicious groups of microcalcifications, spiculated or lobular masses, architectural distortion or other secondary signs of malignancy are mammographically apparent. Overall Assessment: Benign, BI-RAD 2 Management: Screening Mammogram of both breasts in 1 year. A negative mammogram report should not preclude additional follow up of suspicious palpable abnormalities. Patient should continue monthly self breast exam. A clinical breast exam by your physician is recommended on an annual basis and results should be correlated with mammographic findings. Electronically signed and approved by: Mason Bhatia D.O. Radiologis
== END | disposition home or self-care (01) ==
LOC: RADMAMWWP 10:35
PROVIDERS: ATTEND Obstetrics & Gynecology
DX: Z12.31 Encounter for screening mammogram for malignant neoplasm of breast (principal); Z80.3 Family history of malignant neoplasm of breast
CPT/HCPCS: 77067

== ENCOUNTER → 2024-06-15 | Outpatient (CLI) | payer OTHER ==
--- NOTE | 2024-06-15 11:34 | MM ---
Reason for Exam: Screening (asymptomatic). Last screening mammogram was performed 12 month(s) ago. Patient History: Menarche at age 13. First Full-Term at age 19. Premenopausal. Maternal aunt had breast cancer under age 50. Maternal grandmother had ovarian cancer. Mother had ovarian cancer, age 23. Risk Values: Donna 5 year model risk: 0.5%. NCI Lifetime model risk: 7.2%. Prior Study Comparison: 05/12/2022 Bilateral MG screening mammo w CAD, [facility]. 06/14/2023 Bilateral MG screening mammo w CAD, [facility]. Tissue Density: The breasts are almost entirely fatty. Findings: Analyzed By CAD. Right breast: There is no suspicious group of microcalcifications or new suspicious mass. Left breast: There is no suspicious group of microcalcifications or new suspicious mass. Overall Assessment: Negative, BI-RAD 1 Management: Screening Mammogram of both breasts in [address] [facility] will attempt to contact patient to return for supplemental views and ultrasound if indicated. Patient should continue monthly self-breast exams. A clinical breast exam by your physician is recommended on an annual basis. This exam should not preclude additional follow-up of suspicious palpable abnormalities. Note on Donna scores and lifetime risk: 1. A Donna score greater than 3% is considered moderate risk. If this is the case, consider specialist referral to assess eligibility for a risk reducing agent. 2. If overall lifetime risk for the development of breast cancer is 20% or higher, the patient may qualify for future screening with alternating mammogram and breast MRI. [facility], , 06/15/2024 11:31 AM. Electronically signed and approved by: Sergey Garrido DO
== END | disposition home or self-care (01) ==
LOC: RADMAMWWP 09:51
PROVIDERS: ATTEND Family Medicine
DX: Z12.31 Encounter for screening mammogram for malignant neoplasm of breast (principal); R92.343 Mammographic extreme density, bilateral breasts; Z80.3 Family history of malignant neoplasm of breast
CPT/HCPCS: 77067